=== PATIENT | female | born 1980 | race Hispanic/Latino ===

== ENCOUNTER 2017-08-27 14:30 | Inpatient (IN) | payer OTHER ==
[~2017-08-27 14:30] MED LIST: Oxytocin 10 UNITS/ML VIAL ONE; Propofol 200 MG/20 ML VIAL ONE; Succinylcholine Chloride 20 MG/ML 10 ml SYRINGE FS ONE
[2017-08-27] MEDS ORDERED: hydrALAZINE 20 MG/ML VIAL ONE ×2 (15:26→15:44)
[2017-08-27] MEDS: Lactated Ringer's 1,000 ML IV SCH (15:27)
[2017-08-27] MEDS ORDERED: Magnesium Sulfate 20 gm/500 ml 20 GM/500 ML BAG ONE (15:29)
[2017-08-27] MEDS ORDERED: Ondansetron HCl/PF 4 MG/2 ML Vial IVP PRN ×3 (15:33→21:35)
[2017-08-27] MEDS ORDERED: Calcium Gluc 4.6 MEQ/10 ML (100 MG/ML) SLOW IVP PRN (15:33)
[2017-08-27] MEDS ORDERED: Labetalol HCl 100 MG/20 ML VIAL ONE (15:44)
[2017-08-27] MEDS ORDERED: Magnesium Sulfate 20 gm/500 ml 20 GM/500 ML BAG IVPB SCH (15:45)
[2017-08-27] MEDS ORDERED: Lactated Ringer's 1,000 ML IV SCH (15:45)
[2017-08-27] MEDS ORDERED: Magnesium Sulfate 20 GM/WATER 500 ML BAG IVPB SCH (15:45)
[2017-08-27] MEDS: Labetalol HCl 100 MG/20 ML VIAL SLOW IVP SCH ×2 (15:49→16:10)
[2017-08-27 15:59] LABS: #Basophils 0.1 thou/uL (0.0-0.2); #Eosinphils 0.1 thou/uL (0.0-0.7); #Lymphocytes 1.7 thou/uL (1.20-3.40); #Monocytes 0.5 thou/uL (0.11-0.59); #Neutrophils 8.5 thou/uL (1.40-6.50); %Basophils 0.5 % (0.0-1.0); %Eosinophils 0.6 % (0.0-10.0); %Lymphocytes 15.9 % (21.0-51.0); %Monocytes 4.7 % (0.0-10.0); Hematocrit 38.4 % (36.0-47.0); Mean Platelet Volume 7.7 fL (7.4-10.4); Red Blood Cell (RBC) Count 4.46 mill/uL (4.20-5.40); White Blood Cell (WBC) Count 10.9 thou/uL (4.8-10.8)
[2017-08-27] MEDS ORDERED: Labetalol HCl 100 MG/20 ML VIAL SLOW IVP SCH ×3 (16:15→23:45)
[2017-08-27 16:16] LABS: ALT (SGPT) 12 U/L (8-55); AST (SGOT) 18 U/L (5-34); Alkaline Phosphatase 119 U/L (40-150); Anion Gap 10 mmol/L (10-20); BUN (Urea Nitrogen) 21 mg/dL (7.0-18.7); Bilirubin, Total 0.2 mg/dL (0.2-1.2); Calc. Creatinine Clearance 0 mL/min (70-130); Calcium 8.2 mg/dL (7.8-10.44); Carbon Dioxide 26 mmol/L (22-29); Chloride 105 mmol/L (98-107); Estimated GFR-MDRD Greater than 90; Globulin 3.3 g/dL (2.4-3.5); Protein, Total 5.7 g/dL (6.0-8.3)
[2017-08-27] MEDS ORDERED: hydrALAZINE 20 MG/ML VIAL SLOW IVP SCH ×2 (16:30→23:45)
[2017-08-27 16:37] LABS: Bilirubin Negative (Negative); Blood, Urine Small (Negative); Glucose, Urine (Dipstick) Negative (Negative); Ketone, Urine Negative (Negative); Nitrite Negative (Negative); Protein, Urine (Dipstick) > or equal to 300 mg/dL (Neg-Trace); Urobilinogen 0.2 mg/dL (0.2-1.0)
[2017-08-27 16:39] LABS: RBC/HPF 0-3 HPF (0-3)
[2017-08-27 16:46] LABS: Amphetamine Not Detected (NotDetected); Methadone Not Detected (NotDetected); Methamphetamine Detected (NotDetected)
[2017-08-27 16:47] VITALS: BMI 60.7
[2017-08-27] MEDS ORDERED: Labetalol 100 MG TAB PO SCH (17:00)
[2017-08-27 17:01] LABS: Bacteria/HPF 2+ HPF (None Seen); Hyaline Casts/LPF 7-10 HYALINE CAST LPF (0-3 Hyaline); Renal Epithelial None Seen HPF (0-3); Transitional Epithelial NONE SEEN HPF (0-3)
[2017-08-27] MEDS ORDERED: hydrOXYzine 25 MG/ML VIAL IM SCH ×2 (17:15)
[2017-08-27] MEDS ORDERED: FLU VACC QS2017-18 36 mo. & older 0.5 ML SYRINGE IM ONE (17:15)
[2017-08-27] MEDS ORDERED: HumaLOG 300 UNITS/3 ML VIAL SC PRN (17:24)
[2017-08-27] MEDS ORDERED: Dextrose 5% in Water 1,000 ML IV PRN (17:24)
[2017-08-27] MEDS ORDERED: Dextrose 50% Abboject 50 ML SYRINGE SLOW IVP PRN (17:24)
[2017-08-27] MEDS: Betamet Acet/Betamet Na Ph 30 MG/5 ML VIAL IM SCH (18:30)
[2017-08-27] MEDS ORDERED: CEFAZOLIN/Water 2 GM/20 ML SYRINGE ONE (19:06)
[2017-08-27] MEDS ORDERED: Bicitra 30 ML UDCUP ONE (19:06)
[2017-08-27] MEDS ORDERED: LR / Pitocin 40 units/1000 ml 1,000 ML ONE (19:07)
[2017-08-27] MEDS ORDERED: Midazolam HCl 2 mg/2 ml Vial ONE (19:37)
[2017-08-27] MEDS ORDERED: Fentanyl 250 MCG/5 ML VIAL ONE (19:37)
--- NOTE | 2017-08-27 19:52 | ULT ---
BIOPHYSICAL PROFILE AND OB ULTRASOUND: 08/27/17 Multiple longitudinal and transverse images of an intrauterine is obtained using a multihe rtz curvilinear transducer. Real time, color flow, and spectral waveform doppler analysis used to ev aluate the fetus. Images demonstrate a viable intrauterine with the fetus in a breech presentation. The plac enta is anterior. Anatomic evaluation is limited due to maternal body habitus. Amniotic fluid index measures 17.2 cm. Cardiac activity measures 143 beats per minute. Placenta is grade II. BIOMETRICS: Biparietal diameter 79 mm 31 weeks, 6 days Head circumference 292 mm 32 weeks, 1 day Abdominal circumference 270 mm 30 weeks, 6 days Femur length 62 mm 32 weeks, 1 day Composite age equals 31 weeks, 6 days with an estimated date of delivery of 10/23/17. Estimated weight is 1765 grams plus/minus 261 grams. BIOPHYSICAL PROFILE: tone = 2 breathing = 0 movement = 2 Amniotic fluid volume = 2 Composite = 6 out of 8. IMPRESSION: 1. Biophysical profile measures 6 out of 8. 2. Viable IUP with the fetus in breech presentation. Estimated gestational age of 31 weeks, 6 d ays with an estimated date of delivery of 10/23/17. POS: [facility]
[2017-08-27] MEDS ORDERED: HYDROmorphone 2 MG/ML VIAL SLOW IVP PRN ×2 (20:52→21:35)
[2017-08-27] MEDS ORDERED: Meperidine HCl/PF 25 MG/ML VIAL SLOW IVP PRN ×2 (20:52→21:35)
[2017-08-27] MEDS ORDERED: Ketorolac Tromethamine 30 MG/ML VIAL IVP SCH ×2 (21:00→21:45)
--- NOTE | 2017-08-27 21:11 | HP ---
DATE OF ADMISSION: 08/27/2017 ADMISSION DIAGNOSES: 1. A 31-week intrauterine with severe labile hypertension. 2. Possible induced hypertension. 3. Methamphetamine and cannabinoid use. HISTORY OF PRESENT ILLNESS: Josefina is a 37-year-old female, G7, P5-0-0-5, at 31 we eks gestation, who has been followed in my clinic for her care at 8 weeks gestation, who wa s evaluated in the office today for a routine appointment and noted to have markedly elevated blood pressure of 160/110 and the patient states she had just been feeling bad. The patient had been seen 4 weeks prior, noted to have a blood pressure of 140/90. She had no symptoms at that time, instruc jhonathan to check her blood pressure at home. Laboratory studies were obtained, which were normal and th e patient to have followup within the next 2 weeks. She subsequently had not presented until today. She was immediately referred to Labor and Delivery for evaluation. In Labor and Delivery, noted t hat her blood pressure was labile at 220/110. She was evaluated immediately by the laborist to star jhonathan IV magnesium, hydralazine and labetalol for nerve protection and blood pressure control. Labora tory studies were obtained. care has been complicated by positive cannabinoids screen was noted on 05/12/2017, 06/09/2017 and 07/23/2017, although patient denies any use since 01/2017. Also noted that she had an abnormal 1-hour GCT as well as an abnormal 3-hour GCT. We had been unable to reach her by telephone and she was performed of these results today. PAST MEDICAL HISTORY: Significant for previous normal spontaneous vaginal delivery x5 at 38-39 week s, each delivery noted that she had mild induced hypertension for which she states she was induced for delivery, but was never placed on any medications or observation for this. History als o significant for bipolar disorder without present medications and stable. She had been admitted in patient x2 secondary to bipolar disorder. MEDICATIONS: Include aspirin 81 mg, which patient had been prescribed as well as vitamins. ALLERGIES: She has no known drug allergies. SOCIAL HISTORY: Significant for positive tobacco use. The patient states she discontinued 2 weeks prior. She denies alcohol or drug use. She is not . Noted the father of this baby is not t he father of her previous children. History noted that she has been incarcerated for 2 years second callie to drug use, was released approximately 1 year prior. Noted the father of the baby is involved, but he is not the father of her previous children, all of her previous children had been removed fr om her home by CPS. PHYSICAL EXAMINATION: GENERAL: In Labor and Deliver on exam, she is alert and oriented, in no apparent distress. VITAL SIGNS: Blood pressure 190/110. She is afebrile, respiratory rate within normal limits. LUNGS: Clear to auscultation. CARDIOVASCULAR: Regular rate and rhythm without murmur. The patient is markedly obese with protube rant abdomen, which is nontender. EXTREMITIES: Without edema. DTRs 2+. SIGNIFICANT LABORATORY STUDIES: Include a CBC with a white count of 10.9, hemoglobin 12.8, hematocr it 38.4, platelet count normal at 189. Chemistry with electrolytes within normal limits. Creatinin e normal at 0.68, BUN 21, AST 18, ALT 12, alkaline phosphatase 119, total protein 5.7. Free T4 and TSH are normal, fibrinogen level is normal. Urinalysis specific gravity 1.040, positive protein, eq ual to or greater than 300, 7-10 wbc's, 11-20 squamous cells, 2+ bacteria. Urine creatinine elevate d at 186.68. Toxicology screen is positive for cannabinoids and methamphetamines. Biophysical prof ile was obtained and discussed with proof technician noted 6/8 with 2 points removed secondary to no breat jersey movements. The patient then placed on the monitor and noted the nonstress test was reactive wi th some mild variable decels. BULL had appeared normal on ultrasound as well as growth which reveale d gestational age at 31 weeks with good growth and breech presentation. ASSESSMENT AND PLAN: 1. A 31-week intrauterine with severe hypertension. 2. Possible induced hypertension. 3. Methamphetamine and cannabinoid use. 4. Breech presentation. The patient has been admitted, IM steroids have been given and will repeat in 24 hours. The patient will be continued on IV magnesium and antihypertensive medications to be managed through the laborist. A 24-hour urine studies have been started. We will sedate patient as needed. Consider for delivery if unable to control her blood pressure. All of this had been discussed with the patient and she is in agreement.
[2017-08-27] MEDS ORDERED: Meperidine HCl/PF 25 MG/ML VIAL ONE (21:50)
[2017-08-27] MEDS ORDERED: Ketorolac Tromethamine 30 MG/ML VIAL ONE (21:50)
[2017-08-27] MEDS ORDERED: Calcium Gluconate 4.6 MEQ in Sodium Chloride 0.9% 100 ML IVPB PRN (22:31)
[2017-08-27] MEDS ORDERED: Morphine 4 MG/ML Carpuject SLOW IVP PRN (22:34)
[2017-08-27] MEDS ORDERED: Ketorolac Tromethamine 30 MG/ML VIAL IVP PRN (22:34)
[2017-08-27] MEDS: Magnesium Sulfate 20 gm/500 ml 20 GM/500 ML BAG IVPB SCH (23:25)
[2017-08-28] MEDS ORDERED: Furosemide 20 MG/2 ML VIAL SLOW IVP SCH (00:15)
[2017-08-28] MEDS ORDERED: hydrALAZINE 20 MG/ML VIAL SLOW IVP SCH ×3 (00:15→21:15)
[2017-08-28] MEDS ORDERED: CEFAZOLIN/Water 2 GM/20 ML SYRINGE ONE (03:35)
[2017-08-28 05:39] LABS: Hematocrit 38.8 % (36.0-47.0); Mean Platelet Volume 7.9 fL (7.4-10.4); Red Blood Cell (RBC) Count 4.49 mill/uL (4.20-5.40); White Blood Cell (WBC) Count 12.3 thou/uL (4.8-10.8)
[2017-08-28] MEDS ORDERED: Adacel (T-DAP) 0.5 ML VIAL IM ONE (06:00)
--- NOTE | 2017-08-28 07:51 | PDOC.EVN ---
Event Note - Event Note Event Note: Pt seen at 0500 S: BELTRE improved, cough improved, adequate pain control, no RUQ pain. Hungry, no N /V, tolerating Ice chips O: Vital Signs (24 hours) Temp Pulse Resp BP BP Pulse Ox 08/28/17 04:00 97.7 F 72 20 08/27/17 23:59 72 172/88 H 08/27/17 23:30 72 172/88 H 08/27/17 22:37 72 172/88 H 08/27/17 19:00 98.4 F 72 20 08/27/17 17:48 77 221/141 H 08/27/17 17:47 77 221/141 H 08/27/17 17:25 77 221/141 H 08/27/17 16:45 77 192/115 H 08/27/17 16:30 98.5 F 74 22 H 97 08/27/17 16:27 98.5 F 85 22 H 215/140 H 96 08/27/17 16:10 79 225/120 H 08/27/17 15:49 94 209/113 H 08/27/17 15:29 80 227/144 H Laboratory Results - last 24 hr 08/27/17 08/27/17 08/27/17 15:36 15:36 15:40 WBC RBC Hgb Hct MCV MCH MCHC RDW Plt Count MPV Neutrophils % Neutrophils % (Manual) Lymphocytes % Monocytes % Eosinophils % Basophils % Neutrophils # Lymphocytes # Monocytes # Eosinophils # Basophils # Fibrinogen Sodium Potassium Chloride Carbon Dioxide Anion Gap BUN Creatinine Estimated GFR (MDRD) Glucose POC Glucose Calcium Magnesium Total Bilirubin AST ALT Alkaline Phosphatase Serum Total Protein Albumin Globulin Albumin/Globulin Ratio Free T4 TSH 3rd Generation Urine Color Urine Clarity Urine pH Ur Specific [place] Urine Protein Urine Glucose (UA) Urine Ketones Urine Blood Urine Nitrite Urine Bilirubin Urine Urobilinogen Ur Leukocyte Esterase Urine RBC Urine WBC Ur Squamous Epith Cells Ur Transition Epith Cell Ur Renal Epithelial Cell Urine Bacteria Hyaline Casts U Random Total Protein Greater than 2000 Urine Creatinine 186.68 H Urine Opiates Screen Ur Oxycodone Screen Urine Methadone Screen Ur Propoxyphene Screen Ur Barbiturates Screen Ur Tricyclics Screen Ur Phencyclidine Scrn Ur Amphetamines Screen U Methamphetamines Scrn U Benzodiazepines Scrn U Cocaine Metab Screen U Cannabinoids Screen Drug Screen Comment Syphilis IgG/IgM Ab Non-Reactive Hep Bs Antigen Blood Type O POSITIVE Antibody Screen NEGATIVE 08/27/17 08/27/17 08/27/17 15:40 15:40 15:44 WBC RBC Hgb Hct MCV MCH MCHC RDW Plt Count MPV Neutrophils % Neutrophils % (Manual) Lymphocytes % Monocytes % Eosinophils % Basophils % Neutrophils # Lymphocytes # Monocytes # Eosinophils # Basophils # Fibrinogen Sodium 137 Potassium 4.1 Chloride 105 Carbon Dioxide 26 Anion Gap 10 BUN 21 H Creatinine 0.68 Estimated GFR (MDRD) Greater than 90 Glucose 83 POC Glucose Calcium 8.2 Magnesium Total Bilirubin 0.2 AST 18 ALT 12 Alkaline Phosphatase 119 Serum Total Protein 5.7 L Albumin 2.4 L Globulin 3.3 Albumin/Globulin Ratio 0.7 L Free T4 TSH 3rd Generation Urine Color WILVER Urine Clarity CLEAR Urine pH 6.0 Ur Specific [place] 1.040 H Urine Protein > or equal to 300 H Urine Glucose (UA) Negative Urine Ketones Negative Urine Blood Small H Urine Nitrite Negative Urine Bilirubin Negative Urine Urobilinogen 0.2 Ur Leukocyte Esterase Negative Urine RBC 0-3 Urine WBC 7-10 H Ur Squamous Epith Cells 11-20 H Ur Transition Epith Cell NONE SEEN Ur Renal Epithelial Cell None Seen Urine Bacteria 2+ H Hyaline Casts 7-10 HYALINE CAST H U Random Total Protein Urine Creatinine Urine Opiates Screen Not Detected Ur Oxycodone Screen Not Detected Urine Methadone Screen Not Detected Ur Propoxyphene Screen Not Detected Ur Barbiturates Screen Not Detected Ur Tricyclics Screen Not Detected Ur Phencyclidine Scrn Not Detected Ur Amphetamines Screen Not Detected U Methamphetamines Scrn Detected H U Benzodiazepines Scrn Not Detected U Cocaine Metab Screen Not Detected U Cannabinoids Screen Detected H Drug Screen Comment Syphilis IgG/IgM Ab Hep Bs Antigen Blood Type Antibody Screen 08/27/17 08/27/17 08/27/17 15:44 15:44 15:44 WBC 10.9 H RBC 4.46 Hgb 12.8 Hct 38.4 MCV 86.1 MCH 28.7 MCHC 33.3 RDW 14.8 H Plt Count 189 MPV 7.7 Neutrophils % 78.3 H Neutrophils % (Manual) Not Reportable Lymphocytes % 15.9 L Monocytes % 4.7 Eosinophils % 0.6 Basophils % 0.5 Neutrophils # 8.5 H Lymphocytes # 1.7 Monocytes # 0.5 Eosinophils # 0.1 Basophils # 0.1 Fibrinogen 460 Sodium Potassium Chloride Carbon Dioxide Anion Gap BUN Creatinine Estimated GFR (MDRD) Glucose POC Glucose Calcium Magnesium Total Bilirubin AST ALT Alkaline Phosphatase Serum Total Protein Albumin Globulin Albumin/Globulin Ratio Free T4 0.85 TSH 3rd Generation 2.4804 Urine Color Urine Clarity Urine pH Ur Specific [place] Urine Protein Urine Glucose (UA) Urine Ketones Urine Blood Urine Nitrite Urine Bilirubin Urine Urobilinogen Ur Leukocyte Esterase Urine RBC Urine WBC Ur Squamous Epith Cells Ur Transition Epith Cell Ur Renal Epithelial Cell Urine Bacteria Hyaline Casts U Random Total Protein Urine Creatinine Urine Opiates Screen Ur Oxycodone Screen Urine Methadone Screen Ur Propoxyphene Screen Ur Barbiturates Screen Ur Tricyclics Screen Ur Phencyclidine Scrn Ur Amphetamines Screen U Methamphetamines Scrn U Benzodiazepines Scrn U Cocaine Metab Screen U Cannabinoids Screen Drug Screen Comment Syphilis IgG/IgM Ab Hep Bs Antigen Non-Reactive Blood Type Antibody Screen 08/27/17 08/27/17 08/27/17 17:56 23:13 23:13 WBC RBC Hgb Hct MCV MCH MCHC RDW Plt Count MPV Neutrophils % Neutrophils % (Manual) Lymphocytes % Monocytes % Eosinophils % Basophils % Neutrophils # Lymphocytes # Monocytes # Eosinophils # Basophils # Fibrinogen Sodium Potassium Chloride Carbon Dioxide Anion Gap BUN Creatinine Estimated GFR (MDRD) Glucose 120 H POC Glucose 84 Calcium Magnesium 4.7 H Total Bilirubin AST ALT Alkaline Phosphatase Serum Total Protein Albumin Globulin Albumin/Globulin Ratio Free T4 TSH 3rd Generation Urine Color Urine Clarity Urine pH Ur Specific [place] Urine Protein Urine Glucose (UA) Urine Ketones Urine Blood Urine Nitrite Urine Bilirubin Urine Urobilinogen Ur Leukocyte Esterase Urine RBC Urine WBC Ur Squamous Epith Cells Ur Transition Epith Cell Ur Renal Epithelial Cell Urine Bacteria Hyaline Casts U Random Total Protein Urine Creatinine Urine Opiates Screen Ur Oxycodone Screen Urine Methadone Screen Ur Propoxyphene Screen Ur Barbiturates Screen Ur Tricyclics Screen Ur Phencyclidine Scrn Ur Amphetamines Screen U Methamphetamines Scrn U Benzodiazepines Scrn U Cocaine Metab Screen U Cannabinoids Screen Drug Screen Comment Syphilis IgG/IgM Ab Hep Bs Antigen Blood Type Antibody Screen 08/28/17 05:14 WBC 12.3 H RBC 4.49 Hgb 13.0 Hct 38.8 MCV 86.4 MCH 28.8 MCHC 33.4 RDW 14.9 H Plt Count 188 MPV 7.9 Neutrophils % Neutrophils % (Manual) Lymphocytes % Monocytes % Eosinophils % Basophils % Neutrophils # Lymphocytes # Monocytes # Eosinophils # Basophils # Fibrinogen Sodium Potassium Chloride Carbon Dioxide Anion Gap BUN Creatinine Estimated GFR (MDRD) Glucose POC Glucose Calcium Magnesium Total Bilirubin AST ALT Alkaline Phosphatase Serum Total Protein Albumin Globulin Albumin/Globulin Ratio Free T4 TSH 3rd Generation Urine Color Urine Clarity Urine pH Ur Specific [place] Urine Protein Urine Glucose (UA) Urine Ketones Urine Blood Urine Nitrite Urine Bilirubin Urine Urobilinogen Ur Leukocyte Esterase Urine RBC Urine WBC Ur Squamous Epith Cells Ur Transition Epith Cell Ur Renal Epithelial Cell Urine Bacteria Hyaline Casts U Random Total Protein Urine Creatinine Urine Opiates Screen Ur Oxycodone Screen Urine Methadone Screen Ur Propoxyphene Screen Ur Barbiturates Screen Ur Tricyclics Screen Ur Phencyclidine Scrn Ur Amphetamines Screen U Methamphetamines Scrn U Benzodiazepines Scrn U Cocaine Metab Screen U Cannabinoids Screen Drug Screen Comment Syphilis IgG/IgM Ab Hep Bs Antigen Blood Type Antibody Screen Gen. Morbidly obese, NAD Resp. Unlabored Abd. obese, NT, Prevena wound vac in place A/P: 1. POD #1 s/p classical CD doing well 2. Severe pre-e. BPs mild range after multiple doses of hydralizine and labetalol and 1 dose lasix 10mg IV. UOP 400cc first hour after lasix, thereafter 60-170cc/hr. On magnesium recovery until 1999 3. Methamphetamine and THC on UDS. Notify SW 4. GDM with failed 3 hour but not checking BS at home. Check BS here given she received 1 dose of betamethasone
--- NOTE | 2017-08-28 08:20 | OP ---
DATE OF SERVICE: 08/27/2017 PREOPERATIVE DIAGNOSES: 1. A 31-week intrauterine . 2. Severe pre-eclampsia with blood pressures uncontrolled on labetalol and hydralazine. 3. Methamphetamine and marijuana use during . 4. Gestational diabetes. 5. Morbid obesity. 6. Breech presentation POSTOPERATIVE DIAGNOSES: 1. A 31-week intrauterine . 2. Severe preeclampsia with blood pressures uncontrolled on labetalol and hydralazine. 3. Methamphetamine and marijuana use during . 4. Gestational diabetes. 5. Morbid obesity. ANESTHESIA: General. ATTENDING: Dr. Kayleigh Roche COSURGEON: Dr. Pam Schuler PROCEDURE: Primary classical section through Pfannenstiel skin incision. DRAINS: Calle to gravity, Prevena wound VAC. COUNTS: Correct x2. COMPLICATIONS: None immediate. DISPOSITION: Stable to PACU and thereafter to Labor and Delivery for magnesium recovery. ESTIMATED BLOOD LOSS: 700 mL. IV FLUIDS: Replacement. URINE OUTPUT: Not measured. MEDICATIONS: 1. Ancef stone setter to the OR. 2. Pitocin at a cord clamp. 3. Toradol. DETAILED OPERATIVE NOTE: Risks, benefits, and alternatives of the procedure were reviewed with the patient and questions answered to her satisfaction. She was taken to the operating room where she was prepped and draped in the usual sterile fashion with the pannus retracted with tape. A Pfannenstiel skin incision was incised and carried down to the fascia using the scalpel. The fascia was nicked and the fascial incision was extended laterally using Bower scissors. Fascia was dissected off the rectus muscles in the midline. Rectus muscles were . Peritoneum was entered bluntly. Hany retractor was placed. Given the narrowness of the lower uterine segment and the expectation that baby was breech, decision was made to proceed with classical section. A vertical midline incision was incised until hysterotomy was achieved and extended digitally. Amniotomy was performed. Head was elevated into the incision and there was uncomplicated delivery of shoulders and torso. Cord was clamped x2 and cut and the baby was handed off the field to the waiting NICU team. Placenta was manually extracted after cord blood was obtained. Placenta sent to pathology. The uterus was exteriorized and the interior cleaned with moist laps to ensure that there were no remaining products of conception. The uterus was placed back into the abdominal cavity and the incision was closed with 3 layers of 0 PDS. Incision was noted to be hemostatic. The retractors were removed. Rectus muscle and peritoneum were reapproximated in the midline. Fascia was closed with 0 PDS in a running fashion with 2 separate stitches. Subcutaneous tissue was inspected and found to be hemostatic. Skin was closed with 4-0 Monocryl in subcuticular fashion. A Prevena Wound-VAC was applied. The patient tolerated the procedure well and was awakened and taken to PACU in stable condition. LAVELL
[2017-08-28] MEDS: Magnesium Sulfate 20 gm/500 ml 20 GM/500 ML BAG IVPB SCH ×2 (09:19→19:38)
[2017-08-28 10:01] LABS: ALT (SGPT) 12 U/L (8-55); AST (SGOT) 17 U/L (5-34); Alkaline Phosphatase 105 U/L (40-150); Anion Gap 13 mmol/L (10-20); BUN (Urea Nitrogen) 22 mg/dL (7.0-18.7); Bilirubin, Total 0.2 mg/dL (0.2-1.2); Calc. Creatinine Clearance 312 mL/min (70-130); Calcium 7.5 mg/dL (7.8-10.44); Carbon Dioxide 22 mmol/L (22-29); Chloride 103 mmol/L (98-107); Estimated GFR-MDRD Greater than 90; Globulin 3.3 g/dL (2.4-3.5); Magnesium 5.4 mg/dL (1.6-2.6); Protein, Total 5.6 g/dL (6.0-8.3)
[2017-08-28] MEDS: Lactated Ringer's 1,000 ML IV SCH (11:35)
[2017-08-28] MEDS: HYDROcodone/Acetaminophen 5/325 mg Tablet PO PRN ×2 (17:08→18:56)
[2017-08-28] MEDS ORDERED: Furosemide 40 MG/4 ML VIAL SLOW IVP SCH (20:00)
[2017-08-29] MEDS: HYDROcodone/Acetaminophen 5/325 mg Tablet PO PRN ×5 (01:08→19:43)
[2017-08-29] MEDS: hydrALAZINE 20 MG/ML VIAL SLOW IVP PRN ×6 (05:05→22:22)
[2017-08-29] MEDS ORDERED: hydrALAZINE 20 MG/ML VIAL ONE (05:57)
[2017-08-29] MEDS ORDERED: NIFEdipine 10 MG CAP PO SCH (06:15)
[2017-08-29] MEDS: Sodium Chloride 0.9% 20 ML ONE ×2 (08:20→08:40)
[2017-08-29] MEDS ORDERED: NIFEdipine XL 60 MG TAB PO SCH (09:00)
[2017-08-29] MEDS ORDERED: Sodium Chloride 0.9% 10 ML ONE ×4 (09:05→22:20)
[2017-08-29] MEDS ORDERED: Labetalol HCl 100 MG/20 ML VIAL SLOW IVP SCH ×3 (09:45→17:00)
[2017-08-29] MEDS: Docusate Calcium (SURFAK) 240 MG CAP PO SCH ×3 (10:15→21:17)
[2017-08-29 10:49] LABS: Acetaminophen Less than 6.0 mcg/mL (10.0-30.0); Salicylate Less than 8.0 mg/dL (15.0-30.0)
[2017-08-29] MEDS ORDERED: hydrALAZINE 20 MG/ML VIAL SLOW IVP SCH (11:15)
--- NOTE | 2017-08-29 11:56 | PRG ---
DATE OF SERVICE: 08/29/2017 TIME: 09:38 LAB In brief, as the patient is having recurrent spikes of her blood pressure, I have decided to order a recollection of a toxicology screen. As the metabolite of methamphetamine can be in the urine for maximum of 2-5 days per data researched, we will draw a blood sample. According to published data, methamphetamine metabolite will only be positive in the blood for about 12 hours. Therefore, rather than getting urine, we have deferred to a blood sample for methamphetamine. BIJAND
--- NOTE | 2017-08-29 12:04 | PRG ---
DATE OF SERVICE: 08/29/2017 TIME: 10:35 BP Check In brief, the patient received labetalol 20 mg earlier this morning for elevated blood pressure. I was just informed and have confirmed the patient's blood pressure, systolic, is over 170. Once again, we have also drawn a repeat serum test to make sure that there is no other illicit substances in her circulation that has not returned yet. I have also ordered additional labetalol dose at 40 mg slow IV x1 now. Once again, her current regimen includes Procardia 60 mg XL which was given earlier today. We will continue with her labetalol medication now and see if this gives a dose response. If this is still elevated, we may give 80 mg to follow. MTDD
--- NOTE | 2017-08-29 12:17 | PRG ---
DATE OF SERVICE: 08/29/2017 TIME OF EVALUATION: 09:15, it is now 09:30. LOCATION: Labor and Delivery, bed #7. POSTOPERATIVE DAY #2 In brief, this is a patient who underwent a primary section on 08/27/2017 with the preopera tive diagnoses bein. Methamphetamine and marijuana use in . 2. Gestational diabetes. 3. Morbid obesity. 4. Severe preeclampsia, unresponsive to medical management. She was at 31 weeks' gestation. During that surgery, a Prevena wound VAC was placed. For full deta ils, please turn to that operative dictation. In brief, I received the patient report from Dr. Shantell caba from this morning and I am aware of the patient's medical history. She has received Lasix with good diuresis prior to my assuming care. She was also placed on Procardia 60 mg 1 p.o. daily, this is the XL sustained-release pill, which was given earlier today. The patient also received rapid-re lease Procardia 10 mg earlier this morning at about 08:20 for blood pressure which was over 180 syst olic/over 100 diastolic. I evaluated the patient at bedside this morning and this is my progress no te for postoperative day #2. SUBJECTIVE: The patient was eating without new concerns or complaints. OBJECTIVE: I reviewed the patient's labs and confirm that methamphetamine and marijuana was detecte d on admission. This also helps explained to the patient's elevated blood pressure. (Note, the pat jeffrey denies history of chronic hypertension, but she does state that she has had high blood pressure with past pregnancies). On vital sign assessment, the patient's last blood pressure dated 08/29/2017 at 09:23 is 179/92, blo od pressure before that 20 minutes prior was 150/85, 20 minutes prior at 09:00 this morning was 197/ 86, at 08:55 on 08/29/2017 it was 200/87. Due to the persistent elevated blood pressures, I have candida maddox ordered labetalol IV 20 mg x1. As labetalol has not been given for over 48 hours, we will consid er starting labetalol scheduled for now, as we just began oral Procardia we will follow for now. The patient has a Prevena wound dressing in place. ASSESSMENT: This is a patient's postoperative day #2, status post emergent section for unresponsive preeclampsia, which is severe based on pressures. There is no evidence of HELLP b ased on laboratory criteria. She is also positive for amphetamines. PLAN: 1. Add labetalol IV as described today. 2. Procardia-XL 60 mg begun today. 3. Lasix has been given previously with good diuresis, therefore, we will hold off for now. 4. The patient's pulse pressure is greater than 55; therefore, labetalol and Procardia are consider ed first-line, in general. 5. We will consider repeating a urine toxicity to make sure that there has been no reintroduction o f amphetamines given sustained blood pressure elevation. Last urine toxicology assessment was on .
--- NOTE | 2017-08-29 12:23 | PRG ---
DATE OF SERVICE: 08/29/2017 TIME: 11:08. FOLLOWUP BLOOD PRESSURE NOTE In brief, the patient has received 40 mg of Apresoline yet 30 minutes later, blood pressures still w ith a systolic of 180. I have just ordered Apresoline 10 mg IV x1 to be given now for blood pressur e support. Continue to follow again.
--- NOTE | 2017-08-29 13:16 | PRG ---
DATE OF SERVICE: 08/29/2017 Followup at 11:17 In brief, the patient's serum toxicology returned. However, methamphetamines has not included on th at screen. We will continue to adjust blood prEessure medications for now.
[2017-08-29 13:36] LABS: #Eosinphils 0.1 thou/uL (0.0-0.7); #Lymphocytes 1.7 thou/uL (1.20-3.40); #Monocytes 0.5 thou/uL (0.11-0.59); %Eosinophils 0.4 % (0.0-10.0); %Lymphocytes 12.5 % (21.0-51.0); %Monocytes 4.1 % (0.0-10.0); Hematocrit 37.6 % (36.0-47.0); Mean Platelet Volume 7.5 fL (7.4-10.4); Red Blood Cell (RBC) Count 4.18 mill/uL (4.20-5.40); White Blood Cell (WBC) Count 13.2 thou/uL (4.8-10.8)
[2017-08-29] MEDS ORDERED: Furosemide 40 MG/4 ML VIAL SLOW IVP SCH (13:45)
[2017-08-29 13:59] LABS: ALT (SGPT) 12 U/L (8-55); AST (SGOT) 16 U/L (5-34); Alkaline Phosphatase 90 U/L (40-150); Anion Gap 11 mmol/L (10-20); BUN (Urea Nitrogen) 19 mg/dL (7.0-18.7); Bilirubin, Total 0.2 mg/dL (0.2-1.2); Calc. Creatinine Clearance 316 mL/min (70-130); Calcium 7.3 mg/dL (7.8-10.44); Carbon Dioxide 25 mmol/L (22-29); Chloride 103 mmol/L (98-107); Estimated GFR-MDRD Greater than 90; Globulin 3.3 g/dL (2.4-3.5); Protein, Total 5.6 g/dL (6.0-8.3)
--- NOTE | 2017-08-29 15:14 | PRG ---
DATE OF SERVICE: 08/29/2017 TIME: 1505. LABORATORY ASSESSMENT In brief, the patient's complete metabolic profile has returned. Complete metabolic profile shows normal AST and ALT. TSH is also normal. Creatinine is normal at 0.69. Continue to follow. MTDD
--- NOTE | 2017-08-29 17:12 | PRG ---
DATE OF SERVICE: 08/29/2017 BLOOD PRESSURE FOLLOW UP In brief, this patient's blood pressure still has systolics in the 170s. Her total dose of labetalol has been about 60 mg. The maximum allowable dose for hypertensive emergency IV is 300 mg. Therefore, I have ordered an additional 40 mg of labetalol which will take her total dose administered to about 100 mg. She continues on her Procardia-XL 60 mg, which was given this morning. Her labs have returned normal including a normal thyroid stimulating hormone. Urine output has been adequate with the dose of Lasix. MTDD
--- NOTE | 2017-08-29 17:20 | PRG ---
DATE OF SERVICE: 08/29/2017 TIME: 1315. In brief, I was just notified of the patient's blood pressure continues to be elevated. Our last do se of medication included Apresoline 10 mg IV x1 at 1115. Her last vital sign includes a blood pres sure up 216/95 at 1312. Prior to that, at 1307, it was 205/86. Pulse is in the 80s-90s. I just or dered Lasix 40 mg IV x1 to try to decrease her preload due to her wide pulse pressure. Additionally , we will give an additional dose of Apresoline 20 mg IV x1 now. We did ask for the blood to be a s end out lab to see if there is any other methamphetamines since admission that can account for this elevated severe blood pressure. I have also ordered a CBC and a complete metabolic profile and have also ordered a thyroid stimulating hormone test to make sure we were not missing any other etiologi es for this elevated blood pressure.
--- NOTE | 2017-08-29 20:21 | PRG ---
DATE OF SERVICE: 08/29/2017 BLOOD PRESSURE FOLLOWUP The patient still had systolic blood pressures of 160s with diastolics of 90s-100s. I have just sta rted Aldomet 500 mg 1 p.o. b.i.d. to add to her Procardia 60 mg XL. We are trying to transition ove r from IV medications to oral regimen. She is asymptomatic otherwise.
--- NOTE | 2017-08-29 20:52 | PRG ---
DATE OF SERVICE: 08/29/2017 TIME: 20:39. WOUND VAC FOLLOW UP In brief, I was just notified by Mishel, the patient's nurse, that the patient's Prevena wound VAC re servoir is full. We have contacted the OR to see if they can change out the reservoir, but they not ified us that it simply would have to be either removed, turned off, or replaced tomorrow. As she i s 48 hours from her surgery, we will remove the dressing now.
[2017-08-30] MEDS: HYDROcodone/Acetaminophen 5/325 mg Tablet PO PRN ×3 (01:21→20:46)
[2017-08-30] MEDS ORDERED: Triamterene/Hydrochlorothiazid 75 mg/50 mg Tablet PO SCH (09:00)
[2017-08-30] MEDS: NIFEdipine XL 90 MG TAB PO SCH (09:22)
--- NOTE | 2017-08-30 09:39 | PRG ---
DATE OF SERVICE: 08/30/2017 POSTOPERATIVE DAY #3 IN LABOR AND DELIVERY, CARE In brief, this is a patient who had a on 08/27/2017, who is still being monitored in Labor and Delivery due to severe blood pressure elevations. As a review, she had methamphetamines in her system noted initially. SUBJECTIVE: No new concerns identified by her. OBJECTIVE: The patient's blood pressure has still been elevated despite multiple attempts at adjust ments. Last blood pressure was 165/85 at 07:10, but it was 173/81 at 06:10, 1 hour previous. Blood pressures ranged anywhere from 136/73-173/91. In terms of her medication review, I have just adjusted her medications as follows, Aldomet is now a t 1000 mg oral dose in the morning (just received at around 07:00 a.m.) and this will continue with the Aldomet 500 b.i.d. (total of 2000 mg). Her Procardia was also scheduled at 9:00 a.m. at 60 mg X L. I have changed that to 90 mg XL. That is pending. Yesterday, the patient received a total of 1 00 mg of labetalol in various IV pushes. She has also required Apresoline throughout the day yester day. The patient had repeat laboratory assessment yesterday afternoon with no evidence of HELLP syndrome. On physical exam, incision is sutured and clean, dry, and intact. The wound VAC is now off. The wound is having some drainage, but it is intact and the drainage is clear. ASSESSMENT: This is a patient on postoperative day 3 with severe persistent labile blood pressures. Her medication doses as written. PLAN: 1. Continue to follow blood pressures. She is currently on dual agents of Aldomet and Procardia, b oth of which have been increased. 2. No evidence of thyroid abnormality on lab testing. 3. Continue blood pressure evaluations for now.
[2017-08-30 11:42] LABS: #Eosinphils 0.2 thou/uL (0.0-0.7); #Lymphocytes 1.8 thou/uL (1.20-3.40); #Monocytes 0.4 thou/uL (0.11-0.59); #Neutrophils 9.9 thou/uL (1.40-6.50); %Basophils 0.1 % (0.0-1.0); %Eosinophils 1.5 % (0.0-10.0); %Lymphocytes 14.7 % (21.0-51.0); Hematocrit 34.4 % (36.0-47.0); Red Blood Cell (RBC) Count 3.83 mill/uL (4.20-5.40); White Blood Cell (WBC) Count 12.3 thou/uL (4.8-10.8)
[2017-08-30] MEDS: Docusate Calcium (SURFAK) 240 MG CAP PO SCH ×3 (11:44→20:46)
[2017-08-30 12:11] LABS: ALT (SGPT) 11 U/L (8-55); AST (SGOT) 14 U/L (5-34); Alkaline Phosphatase 88 U/L (40-150); Anion Gap 9 mmol/L (10-20); BUN (Urea Nitrogen) 16 mg/dL (7.0-18.7); Bilirubin, Total 0.2 mg/dL (0.2-1.2); Calc. Creatinine Clearance 341 mL/min (70-130); Calcium 7.6 mg/dL (7.8-10.44); Carbon Dioxide 26 mmol/L (22-29); Chloride 103 mmol/L (98-107); Estimated GFR-MDRD Greater than 90; Globulin 3.2 g/dL (2.4-3.5); Protein, Total 5.4 g/dL (6.0-8.3)
[2017-08-31] MEDS: HYDROcodone/Acetaminophen 5/325 mg Tablet PO PRN ×3 (01:10→19:36)
[2017-08-31] MEDS: NIFEdipine XL 90 MG TAB PO SCH (08:08)
[2017-08-31] MEDS: Triamterene/Hydrochlorothiazide 37.5 mg/25 mg Tablet PO SCH ×2 (08:09→21:23)
[2017-08-31] MEDS: Docusate Calcium (SURFAK) 240 MG CAP PO SCH ×2 (10:05→21:55)
--- NOTE | 2017-08-31 20:36 | PDOC.PP ---
Post Progress Note PO intake tolerated: yes Flatus: yes Ambulation: yes Vital Signs (12 hours) Temp Pulse Resp 08/31/17 16:00 99.5 F 91 20 08/31/17 12:00 99.5 F 91 20 Weight Weight 388 lb - Physical Examination General: NAD Cardiovascular: no m/r/g, RRR Abdominal: + bowel sounds, lochia Extremities: negative homans (B) Skin: CS incision dry & intact, no rash Neurological: no gross focal deficits Psychiatric: A&Ox3, normal affect Result Diagrams: 08/30/17 11:34 08/30/17 11:34 Additional Labs: Post Labs Blood Type O POSITIVE 08/27/17 15:36 Hep Bs Antigen Non-Reactive S/CO (NonReactive) 08/27/17 15:44 - Assessment/Plan bps noted. volitle through day but improving - continue current course of meds - iv only for persistent sbp>180-190
[2017-09-01] MEDS: HYDROcodone/Acetaminophen 5/325 mg Tablet PO PRN ×4 (03:42→23:58)
[2017-09-01] MEDS: NIFEdipine 10 MG CAP PO PRN ×2 (05:49→06:29)
[2017-09-01] MEDS: cloNIDine 0.1 MG TAB PO PRN ×3 (07:33→10:46)
--- NOTE | 2017-09-01 08:40 | PRG ---
DATE OF SERVICE: 09/01/2017 TIME OF SERVICE: 06:55 SUBJECTIVE: Ms. Fraga has rested well throughout the night. Systolic blood pressures have range d as high as 190s. She denies headache. She continued to have good urine output. She is resting w ell. LABORATORY DATA: No new. OBJECTIVE: VITAL SIGNS: Afebrile, pulse 90s-100s, blood pressures as noted. Physical exam unchanged. IMPRESSION: Persistent elevated blood pressures post-. PLAN: We will continue Maxzide 25 as well as Procardia-XL. Had added immediate release nifedipine; we would discontinue this at this time. The patient is not , we will initiate clonidi ne 0.1 p.o. q.1 hour p.r.n. for MIG WELDER greater than or equal to 170 and continue to follow. We will or rony basic metabolic panel. We will have Dr. Del Castillo, who will be taking over at 0800 hour, continue to follow along with the patient.
[2017-09-01] MEDS: Triamterene/Hydrochlorothiazide 37.5 mg/25 mg Tablet PO SCH (08:48)
[2017-09-01] MEDS: NIFEdipine XL 90 MG TAB PO SCH (08:48)
[2017-09-01] MEDS: Docusate Calcium (SURFAK) 240 MG CAP PO SCH ×2 (08:48→21:04)
[2017-09-01 09:08] LABS: Anion Gap 12 mmol/L (10-20); BUN (Urea Nitrogen) 14 mg/dL (7.0-18.7); Calc. Creatinine Clearance 326 mL/min (70-130); Carbon Dioxide 26 mmol/L (22-29); Chloride 102 mmol/L (98-107); Estimated GFR-MDRD Greater than 90
[2017-09-01] MEDS ORDERED: Lisinopril 10 MG TAB PO SCH (09:45)
[2017-09-01] MEDS ORDERED: NIFEdipine XL 90 MG TAB PO SCH (14:00)
--- NOTE | 2017-09-01 14:00 | PDOC.PN ---
- Subjective Encounter Start Date: 09/01/17 Encounter Start Time: 13:59 Pt seen for management of hypertension. Sleepy but answering questions. Denies chest pain, shortness of breath, fevers or chills. - Objective MAR Reviewed: Yes Vital Signs & Weight: Vital Signs (12 hours) Temp Pulse Resp BP 09/01/17 11:37 173/93 H 09/01/17 10:46 173/93 H 09/01/17 08:48 90 191/98 H 09/01/17 07:45 98.9 F 90 20 09/01/17 07:33 182/88 H 09/01/17 04:10 98.9 F 95 20 Weight Weight 388 lb Result Diagrams: 08/30/17 11:34 09/01/17 08:23 Phys Exam - Physical Examination Morbid obesity HEENT: moist MMs, sclera anicteric Neck: supple, full ROM Respiratory: clear to auscultation bilateral Cardiovascular: RRR, no rub Gastrointestinal: soft, non-tender, positive bowel sounds Neurological: moves all 4 limbs Psychiatric: normal affect Dx/Plan (1) Hypertensive urgency Code(s): I16.0 - HYPERTENSIVE URGENCY Status: Acute (2) Bipolar disorder Code(s): F31.9 - BIPOLAR DISORDER, UNSPECIFIED Status: Chronic (3) Amphetamine abuse Code(s): F15.10 - OTHER STIMULANT ABUSE, UNCOMPLICATED Status: Chronic (4) Obesity Code(s): E66.9 - OBESITY, UNSPECIFIED Status: Chronic Qualifiers: Body mass index: BMI 60.0-69.9 - Plan * .Pt is not at this time, delivered last Thursday. * Increase cardizem to 180 mg PO daily starting tomorrow (give an additional dose of 90 mg now) * Start scheduled hydralazine 25 mg PO TID. * Discontinue triamterene/hydrochlorothiazide. * Continue to monitor vital signs. * * Pt will benefit from a sleep study (as outpatient) because she may be having resistant hypertension due to obstructive sleep apnea syndrome. Pt denies recreational drug use. Review of Systems - Review of Systems Respiratory: negative: Cough, Dry, Shortness of Breath, Hemoptysis, SOB with Excertion, Pleuritic Pain, Sputum, Wheezing Cardiovascular: negative: Chest Pain, Palpitations, Orthopnea, Paroxysmal Noc. Dyspnea, Edema, Light Headedness Neurological: negative: Weakness, Numbness, Incoordination, Change in Speech, Confusion, Seizures - Medications/Allergies Allergies/Adverse Reactions: Allergies Allergy/AdvReac Type Severity Reaction Status Date / Time No Known Drug Allergies Allergy Verified 08/27/17 16:31 Medications: Current Medications Hydrocodone Bitart/Acetaminophen ([place] 5/325) 1 tab PO Q4H PRN PRN Reason: Moderate Pain (4-6) Last Admin: 08/29/17 16:08 Dose: 1 tab Hydrocodone Bitart/Acetaminophen ([place] 5/325) 2 tab PO Q4H PRN PRN Reason: Severe Pain (7-10) Last Admin: 09/01/17 11:45 Dose: 2 tab Clonidine (Catapres) 0.1 mg PO Q1H PRN PRN Reason: SBP Greater Than 170 Last Admin: 09/01/17 10:46 Dose: 0.1 mg Docusate Calcium (Surfak) 240 mg PO BID [facility] Last Admin: 09/01/17 08:48 Dose: 240 mg Hydralazine HCl (Apresoline) 25 mg PO TID [facility] Nifedipine (Procardia Xl) 90 mg PO DAILY [facility] Last Admin: 09/01/17 08:48 Dose: 90 mg Nifedipine (Procardia Xl) 90 mg PO NOW [facility] Stop: 09/01/17 16:00 Nifedipine (Procardia Xl) 180 mg PO DAILY [facility] Sodium Chloride (Flush - Normal Saline) 10 ml IVF Q12HR PRN PRN Reason: Saline Flush Last Admin: 08/31/17 03:51 Dose: 10 ml Triamterene/HCTZ (Maxzide-25) 1 tab PO BID [facility] Last Admin: 09/01/17 08:48 Dose: 1 tab
[2017-09-01] MEDS: hydrALAZINE 25 MG TAB PO SCH ×2 (14:42→21:04)
--- NOTE | 2017-09-01 16:34 | PRG ---
DATE OF SERVICE: 09/01/2017 This is postoperative day 4 status post a for severe preeclampsia. She has been off mag a nd we have been having complications with persistent blood pressure issues in the severe range today . We had Internal Medicine consult and got their recommendations. They recommended doubling her Pr ocardia and adding Apresoline 25 mg 3 times a day. We have discharge lisinopril, discharge Maxzide, and then patient will continue to have clonidine p.r.n. as needed every hour. Blood pressures sinc e change have come down into the mild range with the last blood pressure 143/78. Her CMP was within normal limits yesterday and will not repeat that. We will be transferring the patient to the postp artum floor and evaluate there. If blood pressure remains stable over the next 18-24 hours, patient can likely discharge home.
[2017-09-01] MEDS: Lactated Ringer's 1,000 ML IV SCH (18:18)
[2017-09-01] MEDS: Betamet Acet/Betamet Na Ph 30 MG/5 ML VIAL IM SCH (18:19)
[2017-09-02] MEDS: HYDROcodone/Acetaminophen 5/325 mg Tablet PO PRN ×3 (04:23→19:52)
[2017-09-02] MEDS: NIFEdipine XL 90 MG TAB PO SCH (08:21)
[2017-09-02] MEDS: Docusate Calcium (SURFAK) 240 MG CAP PO SCH ×2 (08:23→19:52)
[2017-09-02] MEDS: hydrALAZINE 25 MG TAB PO SCH ×3 (08:23→19:52)
--- NOTE | 2017-09-02 09:16 | PDOC.PP ---
Post Progress Note Post Day #: 5 Subjective: Doing well. She is sore but ambulating and denies any issues otherwise. PO intake tolerated: yes Flatus: yes Ambulation: yes Vital Signs (12 hours) Temp Pulse Resp BP BP BP 09/02/17 08:23 83 158/91 H 09/02/17 08:21 83 158/91 H 09/02/17 08:05 98.0 F 83 18 158/91 H 09/02/17 04:00 98.5 F 99 18 143/81 H 09/02/17 00:00 98.1 F 101 H 18 137/100 H Weight Weight 348 lb - Physical Examination General: NAD Respiratory: non-labored breathing Abdominal: lochia (normal), no distention, appropriately TTP Skin: CS incision dry & intact, no rash Neurological: no gross focal deficits Psychiatric: A&Ox3, normal affect Result Diagrams: 08/30/17 11:34 09/01/17 08:23 Additional Labs: Post Labs Blood Type O POSITIVE 08/27/17 15:36 Hep Bs Antigen Non-Reactive S/CO (NonReactive) 08/27/17 15:44 (1) S/P primary low transverse Code(s): Z98.891 - HISTORY OF UTERINE SCAR FROM PREVIOUS SURGERY Status: Acute - Assessment/Plan Doing well. BPs improved but borderline. Will continue to monitor at least until tomorrow morning.
--- NOTE | 2017-09-02 12:33 | PDOC.PN ---
- Subjective Encounter Start Date: 09/02/17 Encounter Start Time: 10:20 Pt seen for followup re; hypertension. Denies chest pain, shortness of berath, fevers or chills. No headache. - Objective MAR Reviewed: Yes Vital Signs & Weight: Vital Signs (12 hours) Temp Pulse Resp BP BP 09/02/17 08:23 83 158/91 H 09/02/17 08:21 83 158/91 H 09/02/17 08:05 98.0 F 83 18 158/91 H 09/02/17 04:00 98.5 F 99 18 143/81 H Weight Weight 348 lb Result Diagrams: 08/30/17 11:34 09/01/17 08:23 Phys Exam - Physical Examination Morbid obesity HEENT: moist MMs, sclera anicteric Neck: supple Respiratory: clear to auscultation bilateral Cardiovascular: RRR, no rub Gastrointestinal: soft, positive bowel sounds Neurological: moves all 4 limbs Psychiatric: normal affect Skin: no rash Dx/Plan (1) HTN (hypertension) Code(s): I10 - ESSENTIAL (PRIMARY) HYPERTENSION Status: Chronic (2) Bipolar disorder Code(s): F31.9 - BIPOLAR DISORDER, UNSPECIFIED Status: Chronic (3) Amphetamine abuse Code(s): F15.10 - OTHER STIMULANT ABUSE, UNCOMPLICATED Status: Chronic (4) Obesity Code(s): E66.9 - OBESITY, UNSPECIFIED Status: Chronic Qualifiers: Body mass index: BMI 50.0-59.9 (5) Hypertensive urgency Code(s): I16.0 - HYPERTENSIVE URGENCY Status: Resolved - Plan * . BP improved today, still high. Will increase hydralazine dose. Pt asymptomatic. Monitor vital signs, titrate antihypertensives PRN. Review of Systems - Review of Systems Respiratory: negative: Cough, Dry, Shortness of Breath, Hemoptysis, SOB with Excertion, Pleuritic Pain, Sputum, Wheezing Cardiovascular: negative: Chest Pain, Palpitations, Orthopnea, Paroxysmal Noc. Dyspnea, Edema, Light Headedness Neurological: negative: Weakness, Numbness, Incoordination, Change in Speech, Confusion, Seizures - Medications/Allergies Allergies/Adverse Reactions: Allergies Allergy/AdvReac Type Severity Reaction Status Date / Time No Known Drug Allergies Allergy Verified 08/27/17 16:31 Medications: Current Medications Hydrocodone Bitart/Acetaminophen ([place] 5/325) 1 tab PO Q4H PRN PRN Reason: Moderate Pain (4-6) Last Admin: 08/29/17 16:08 Dose: 1 tab Hydrocodone Bitart/Acetaminophen ([place] 5/325) 2 tab PO Q4H PRN PRN Reason: Severe Pain (7-10) Last Admin: 09/02/17 04:23 Dose: 2 tab Clonidine (Catapres) 0.1 mg PO Q1H PRN PRN Reason: SBP Greater Than 170 Last Admin: 09/01/17 10:46 Dose: 0.1 mg Docusate Calcium (Surfak) 240 mg PO BID [facility] Last Admin: 09/02/17 08:23 Dose: 240 mg Hydralazine HCl (Apresoline) 25 mg PO TID [facility] Last Admin: 09/02/17 08:23 Dose: 25 mg Nifedipine (Procardia Xl) 180 mg PO DAILY [facility] Last Admin: 09/02/17 08:21 Dose: 180 mg Sodium Chloride (Flush - Normal Saline) 10 ml IVF Q12HR PRN PRN Reason: Saline Flush Last Admin: 08/31/17 03:51 Dose: 10 ml
--- NOTE | 2017-09-02 16:23 | PDOC.EVN ---
Subjective - Review of Systems Events since last encounter: void entry
[2017-09-03] MEDS: HYDROcodone/Acetaminophen 5/325 mg Tablet PO PRN ×2 (02:09→14:41)
[2017-09-03] MEDS: cloNIDine 0.1 MG TAB PO PRN (06:08)
[2017-09-03] MEDS: hydrALAZINE 25 MG TAB PO SCH ×2 (09:31→14:47)
[2017-09-03] MEDS: Docusate Calcium (SURFAK) 240 MG CAP PO SCH (09:31)
[2017-09-03] MEDS: NIFEdipine XL 90 MG TAB PO SCH (09:36)
--- NOTE | 2017-09-03 11:31 | PDOC.PN ---
- Subjective Encounter Start Date: 09/03/17 Encounter Start Time: 10:00 Pt seen for followup re: hypertension. Denies chest pain, shortness of breath, fevers or chills. - Objective MAR Reviewed: Yes Vital Signs & Weight: Vital Signs (12 hours) Temp Pulse Resp BP BP BP 09/03/17 09:36 100 136/86 09/03/17 09:31 100 136/86 09/03/17 08:00 98.4 F 100 18 136/86 09/03/17 06:08 171/94 H 09/03/17 06:00 98.7 F 98 24 H 171/94 H 09/03/17 02:00 98.1 F 103 H 24 H 139/98 H Weight Weight 348 lb Result Diagrams: 08/30/17 11:34 09/01/17 08:23 Phys Exam - Physical Examination Morbid obesity HEENT: moist MMs Neck: supple Respiratory: clear to auscultation bilateral Cardiovascular: RRR Neurological: moves all 4 limbs Psychiatric: normal affect Dx/Plan (1) HTN (hypertension) Code(s): I10 - ESSENTIAL (PRIMARY) HYPERTENSION Status: Chronic (2) Bipolar disorder Code(s): F31.9 - BIPOLAR DISORDER, UNSPECIFIED Status: Chronic (3) Amphetamine abuse Code(s): F15.10 - OTHER STIMULANT ABUSE, UNCOMPLICATED Status: Chronic (4) Obesity Code(s): E66.9 - OBESITY, UNSPECIFIED Status: Chronic Qualifiers: Body mass index: BMI 50.0-59.9 (5) Hypertensive urgency Code(s): I16.0 - HYPERTENSIVE URGENCY Status: Resolved - Plan * . BP better. Counseled pt re: checking BP and heart rate three times a day and showing the readings to her family physician. Advised stopping recreational drugs. Pt expressed understanding. Plan for discharge noted, will sign off. Review of Systems - Review of Systems Cardiovascular: negative: Chest Pain, Palpitations, Orthopnea, Paroxysmal Noc. Dyspnea, Edema, Light Headedness Gastrointestinal: negative: Nausea, Vomiting, Abdominal Pain, Diarrhea, Constipation, Melena, Hematochezia - Medications/Allergies Allergies/Adverse Reactions: Allergies Allergy/AdvReac Type Severity Reaction Status Date / Time No Known Drug Allergies Allergy Verified 08/27/17 16:31 Medications: Current Medications Hydrocodone Bitart/Acetaminophen ([place] 5/325) 1 tab PO Q4H PRN PRN Reason: Moderate Pain (4-6) Last Admin: 09/03/17 02:09 Dose: 1 tab Hydrocodone Bitart/Acetaminophen ([place] 5/325) 2 tab PO Q4H PRN PRN Reason: Severe Pain (7-10) Last Admin: 09/02/17 19:52 Dose: 2 tab Clonidine (Catapres) 0.1 mg PO Q1H PRN PRN Reason: SBP Greater Than 170 Last Admin: 09/03/17 06:08 Dose: 0.1 mg Docusate Calcium (Surfak) 240 mg PO BID [facility] Last Admin: 09/03/17 09:31 Dose: 240 mg Hydralazine HCl (Apresoline) 50 mg PO TID [facility] Last Admin: 09/03/17 09:31 Dose: 50 mg Nifedipine (Procardia Xl) 180 mg PO DAILY [facility] Last Admin: 09/03/17 09:36 Dose: 180 mg Sodium Chloride (Flush - Normal Saline) 10 ml IVF Q12HR PRN PRN Reason: Saline Flush Last Admin: 08/31/17 03:51 Dose: 10 ml
[2017-09-03 17:40] VITALS: BP 154/71; TEMP 97.9
--- NOTE | 2017-09-04 06:14 | DIS ---
DATE OF ADMISSION: 08/27/2017 DATE OF DISCHARGE: 09/03/2017 ADMITTING DIAGNOSES: 1. Intrauterine at 31 weeks. 2. -induced hypertension. 3. Methamphetamine abuse. DISCHARGE DIAGNOSES: 1. Intrauterine at 31 weeks. 2. -induced hypertension. 3. Methamphetamine abuse. PROCEDURE PERFORMED: Primary lower transverse section and preeclampsia management. CONSULTATIONS: Internal Medicine. HOSPITAL COURSE: Patient is a 37-year-old female who presented to the hospital from the clinic after noting elevated pressures in clinic of 160/110 and feeling bad. In labor and delivery blood, blood pressures became labile as high as 220/110. Attempts of blood pressure control with medication was ineffective and patient was taken to the OR for a . Please refer to the operative note for complete details. Her course has been complicated by persistent resistant hypertension. She was on magnesium for 24 hours. After about the evening of day #1, patient began having severe range of pressures that persistently became difficult to treat. Over the subsequent 4 to 5 days, patient remained on labor and delivery as blood pressure medications were routinely increased with IV breakthrough medications. On hospital day #5, Internal Medicine was consulted as patient's oral regimen was not sufficiently managing blood pressures. After consultation , medications were increased to 180 mg of Procardia daily and 25 mg of hydralazine three times a day. Pressures did improve, but had multiple spikes into the superior range and medications were adjusted again to 180 mg of Procardia daily and 50 mg of hydralazine t.i.d. This appears to be keeping blood pressures at this point mainly in the [id number] range. Patient is not having any adverse symptoms. Of note, the patient had a 40-pound weight loss since presentation and delivery of her baby. The patient is being discharged to home on hydralazine 50 mg to be taken 3 times a day with a month' s supply, Procardia-XL 180 mg to be taken once a day with a month's supply, and tramadol 50 mg tablets to be taken 1 to 2 tablets every 4 hours p.r.n. for pain , and then Tylenol [id number] as needed. The patient has been given instructions to check her blood pressure at home 3 times a day and to notify her physician if her pressures are measuring about 170 systolic and 105 diastolic. She is to follow up with her primary OB, Dr. Pam Schuler in 1 week for blood pressure check and an incision check. Patient has been given instructions to seek medical attention if she experiences fever, increasing pain or bleeding or discharge from her incision, or redness or firmness from her incision. She has also been given instructions to limit her lifting to 15 pounds for the next 4 to 6 weeks and will have a 2-week restriction from driving. On the date of discharge, patient's blood pressure is 141/62, respiratory rate of 20, pulse of 113, temperature 98.3. After discharge the pharmacy called and reported the medication needs prior authorization by her pcp before being filled as written. We were able to resolved the hydralizine Rx. How Procardia xl 180mg daily was not approved. We did manage to get 30 tablets of procardia 90mg and gave her instructions to take two daily. Please work with Medicaid to get authorization if she needs more than two weeks of medication. LAVELL
== END 2017-09-03 18:00 | disposition home or self-care (01) | DRG 765 ==
LOC: L&D/OP 14:30 → L&D 18:09 → 3SW 09-01 17:11
PROVIDERS: ADMIT Family Medicine; ATTEND Family Medicine
PROC: 10D00Z0 Extraction of Products of Conception, High, Open Approach (ICD-10-PCS; principal; 2017-08-27)
DX: O14.14 Severe pre-eclampsia complicating childbirth (principal); Z68.43 Body mass index [BMI] 50.0-59.9, adult; E66.01 Morbid (severe) obesity due to excess calories; O99.324 Drug use complicating childbirth; O24.429 Gestational diabetes mellitus in childbirth, unspecified control; O99.214 Obesity complicating childbirth; Z71.3 Dietary counseling and surveillance; F12.90 Cannabis use, unspecified, uncomplicated; Z3A.31 31 weeks gestation of pregnancy; Z37.0 Single live birth; F15.10 Other stimulant abuse, uncomplicated; F31.9 Bipolar disorder, unspecified; I16.0 Hypertensive urgency; O32.1XX0 Maternal care for breech presentation, not applicable or unspecified
CPT/HCPCS: 36415; 36416; 76805; 76819; 80048; 80053; 80306; 80307; 81001; 82570; 82947; 83735; 84156; 84439; 84443; 85025; 85027; 85384; 86780; 86803; 86850; 86900; 86901; 87340; 88307; A4216; J0360; J0702; J1885; J1940; J2175; J2250; J2270; J2590; J2704; J3010; J3410; J3475

== ENCOUNTER 2018-08-15 23:00 | Emergency (ER) | payer MEDICAID, OTHER | END 2018-08-15 23:52 | disposition home or self-care (01) | LOC: ERS 23:00 | DX: L08.9 Local infection of the skin and subcutaneous tissue, unspecified (principal); I10 Essential (primary) hypertension; F41.9 Anxiety disorder, unspecified; F32.9 Major depressive disorder, single episode, unspecified; F43.10 Post-traumatic stress disorder, unspecified; F17.210 Nicotine dependence, cigarettes, uncomplicated | CPT/HCPCS: 99283 ==

== ENCOUNTER 2018-08-22 09:53 | Emergency (ER) | payer MEDICAID, SELFPAY | END 2018-08-22 10:45 | disposition home or self-care (01) | LOC: ERS 09:53 | DX: I10 Essential (primary) hypertension (principal); L73.9 Follicular disorder, unspecified; F43.10 Post-traumatic stress disorder, unspecified; F41.9 Anxiety disorder, unspecified; F17.210 Nicotine dependence, cigarettes, uncomplicated | CPT/HCPCS: 99283 ==

== ENCOUNTER 2018-10-01 13:32 | Emergency (ER) | payer SELFPAY ==
[2018-10-01 14:10] LABS: BHCG - Serum POSITIVE (NEGATIVE)
[2018-10-01 14:11] LABS: Pregs Control Background? CLEAR/WHITE (CLR/WHITE); Pregs Control Bar Appear? YES (CONTROL BAR)
--- NOTE | 2018-10-01 17:24 | ULT ---
OB ULTRASOUND: 10/01/18 HISTORY: Abdominal cramping. FINDINGS: The uterus measures 12.5 x 6.6 x 6.9 cm. The right ovary measures 3.2 x 4.2 x 2.5 cm and the left ova ry measures 1.7 x 3 x 1.5 cm. Flow is demonstrated to both ovaries. There are two intrauterine gestational sacs present. One of these (baby A), has measurements correspo nding to an estimated gestational age of 6 weeks, 1 day and NYA at 05/26/19. The crown-rump length gideon sures 0.33 cm, gestational sac diameter 1.52 cm and yolk sac diameter 0.26 cm. heart rate measu res 123 beats per minute. The other gestational sac does not demonstrate a pole (gestational sac B). Hypoechoic area is s een to the left of these gestational sacs which may either represent a chorionic bleed or third gesta tional sac without pole. IMPRESSION: Findings suggestive of multiple intrauterine pregnancies with only one of them demonstrating a heart rate and has an estimated gestational age of 6 weeks, 1 day and NYA at 05/26/19. Findings were discussed over the telephone with Viola Longoria in the Emergency Room at 4:28 p.m. POS: EDDA
== END 2018-10-01 17:17 | disposition home or self-care (01) ==
LOC: ERS 13:32
DX: O09.521 Supervision of elderly multigravida, first trimester (principal); O99.89 Other specified diseases and conditions complicating pregnancy, childbirth and the puerperium; R10.30 Lower abdominal pain, unspecified; O99.341 Other mental disorders complicating pregnancy, first trimester; F41.9 Anxiety disorder, unspecified; F32.9 Major depressive disorder, single episode, unspecified; F43.10 Post-traumatic stress disorder, unspecified; O99.331 Smoking (tobacco) complicating pregnancy, first trimester; F17.210 Nicotine dependence, cigarettes, uncomplicated; I10 Essential (primary) hypertension; Z3A.01 Less than 8 weeks gestation of pregnancy
CPT/HCPCS: 36415; 76805; 84702; 84703

== ENCOUNTER 2019-02-24 21:41 | Day surgery (SDC) | payer OTHER ==
[2019-02-24 22:24] VITALS: BMI 57.9
[2019-02-24 23:17] LABS: FFN Internal QC Analyzer PASS (PASS); FFN Internal QC Cassette PASS (PASS); Fetal Fibronectin Negative (Negative)
--- NOTE | 2019-02-25 07:36 | ULT ---
BIOPHYSICAL PROFILE: biophysical profile on Twin B will be reported on the examination for the Twin A gestation. Pl ease see the additional biophysical profile on the separately dictated, concurrently performed obstet rical ultrasound exam. POS: BH
--- NOTE | 2019-02-25 07:42 | ULT ---
THIRTY MINUTE BIOPHYSICAL SCORE ULTRASOUND OF TWIN : INDICATION: Twin with history of maternal morbid obesity. FINDINGS: There is a dichorionic diamniotic twin-twin with Twin A located to the maternal right with the fetus's head to the maternal right in a transverse lie. Twin B is on the maternal left but also in a transverse lie with its head to the maternal right. TWIN A: The Twin A documents cardiac activity at 144 b.p.m. Again, the head is to the maternal right. The p lacenta is anterior in location without evidence of previa. BULL is noted at 18.3 cm. The biophysical profile is 8 out of 8. movement: 2 out of 2. tone: 2 out of 2. breathin out of 2. Amniotic fluid volume: 2 out of 2. Twin B: The placenta is posterior in location without evidence of previa. The head reported on the imaging a s being to the maternal right. BULL is noted at 10.6 cm. heart tones are noted at 149 b.p.m. Biophysical score of 8 out of 8. movement: 2 out of 2. tone: 2 out of 2. breathing movements: 2 out of 2. Amniotic fluid volume: 2 out of 2. IMPRESSION: 1. Biophysical profile of 8 out of 8 for Twin and a biophysical profile of 8 out of 8 for Twin B. 2. Dichorionic, diamniotic twin-twin . POS: BH
--- NOTE | 2019-02-25 08:07 | ER ---
DATE OF SERVICE: 02/24/2019 PRIMARY OB: Walt Xavier MD CHIEF COMPLAINT: Abdominal pains, spots, vision change, chronic headache. HISTORY OF PRESENT ILLNESS: The patient is a 38-year-old morbidly obese female with chronic hypertension and gestational diabetes, on glyburide and Procardia, who is presenting today with chronic headache, visual spots, abdominal pain, and mucousy discharge. The patient has a history of preeclampsia with severe features and delivery at 27 weeks as a result and was worried that she may be experiencing something similar. The patient reports that her headache has been on and off for several months that she has had some vision changes and blurriness also for much of the , but has had spots in her vision that is new. She has also been experiencing some pelvic pains. The patient denies fever, cough, fall, chest pain, shortness of breath, nausea, vomiting, diarrhea, or constipation. She has had hip problems from the . No muscle weakness. No new rashes. No vaginal bleeding. She has had this watery mucousy discharge and no urinary urgency. The patient reports her blood sugars have been primarily in the 90s fasting and in the 130s up to 170s postprandial. PAST MEDICAL HISTORY: Chronic hypertension, gestational diabetes. PAST SURGICAL HISTORY: She has had 2 prior sections. PSYCHIATRIC HISTORY: Includes anxiety, depression, PTSD with a history of emergency department psychiatric evaluation in 2012. SOCIAL HISTORY: The patient reports tobacco use. Denies drug abuse or alcohol, though previous visits do document a history of methamphetamines, last use being reported in August 2018. OB LABS: Unavailable at the time of dictation. ALLERGIES: NO KNOWN DRUG ALLERGIES. MEDICATIONS: 1. vitamins. 2. Procardia. 3. Glyburide. PHYSICAL EXAMINATION: VITAL SIGNS: Blood pressure 134/73, heart rate of 99, respiratory rate 18, saturating 98% on room air, and temperature 98.1. Repeat blood pressure 134/76. GENERAL: She appears to be in no acute distress. She is alert, oriented, cooperative, and pleasant to interact with. HEENT: Head is normocephalic and atraumatic. LUNGS: Clear to auscultation bilaterally. HEART: Has regular rate and rhythm. ABDOMEN: Soft and morbidly obese, nontender. EXTREMITIES: Nontender. GENITOURINARY: Vulva is without masses, lesions, or erythema. There is a strong odor. On speculum exam, the patient has significant amount of discharge. Cervix with some difficulties visualized and appears closed. VPIII and fibronectin were collected. Cervix on digital exam is closed, unable to grain picker baby's on with heart tracing due to habitus and BPPs were ordered for both fetuses, which both came back as 8. LABORATORY DATA: fibronectin came back negative. VPIII, which came back this morning has reported positive for bacterial vaginosis, negative for Trichomonas or Olivia. ASSESSMENT AND PLAN: The patient is a 38-year-old female with an intrauterine of di-di twins at 28 weeks' gestation, presenting with constellation of symptoms and concerns that she is developing preeclampsia again. Her blood pressures have been normal and stable on her Procardia. Lab work, fibronectin was negative. The patient did not show any evidence of labor or rupture of membranes and her VPIII demonstrated bacterial vaginosis. She will be prescribed metronidazole 500 mg to be taken twice a day for 7 days. The patient has 2 fetuses that are reassuring by a BPPs of 06/09. The patient was discharged home with instructions to follow up with her primary OB. Job ID: [id number]
== END 2019-02-25 01:41 | disposition home or self-care (01) ==
LOC: L&D/OP 21:41
PROVIDERS: ATTEND Obstetrics & Gynecology
DX: O99.89 Other specified diseases and conditions complicating pregnancy, childbirth and the puerperium (principal); R51 Headache; R10.9 Unspecified abdominal pain; H53.8 Other visual disturbances; O99.213 Obesity complicating pregnancy, third trimester; E66.01 Morbid (severe) obesity due to excess calories; O24.415 Gestational diabetes mellitus in pregnancy, controlled by oral hypoglycemic drugs; N89.8 Other specified noninflammatory disorders of vagina; O10.913 Unspecified pre-existing hypertension complicating pregnancy, third trimester; O99.343 Other mental disorders complicating pregnancy, third trimester; F32.9 Major depressive disorder, single episode, unspecified; F43.10 Post-traumatic stress disorder, unspecified; F41.9 Anxiety disorder, unspecified; O99.333 Smoking (tobacco) complicating pregnancy, third trimester; F17.200 Nicotine dependence, unspecified, uncomplicated; O23.593 Infection of other part of genital tract in pregnancy, third trimester; B96.89 Other specified bacterial agents as the cause of diseases classified elsewhere; O30.043 Twin pregnancy, dichorionic/diamniotic, third trimester; Z3A.28 28 weeks gestation of pregnancy; Z79.899 Other long term (current) drug therapy; Z79.84 Long term (current) use of oral hypoglycemic drugs; Z88.8 Allergy status to other drugs, medicaments and biological substances
CPT/HCPCS: 36415; 76819; 82731; 87480; 87510; 87660; 99283

== ENCOUNTER 2019-03-04 11:45 | Day surgery (SDC) | payer OTHER ==
[2019-03-04 12:23] VITALS: BMI 57.8
[2019-03-04] MEDS ORDERED: hydrALAZINE 20 MG/ML VIAL ONE (12:43)
[2019-03-04] MEDS ORDERED: hydrALAZINE 10 MG TAB PO SCH (12:45)
--- NOTE | 2019-03-04 12:48 | PDOC.LDHP ---
Labor and Delivery H&P Chief complaint: other (Twins. Morbid Obesity with BMI 57. GDM, CHTN...here for BP exacerbation vs Superimposd PIH) HPI: Patient of Dr freddie Frazier called me kai;ier this AM (around 1100) that this patient was being sent from [facility] (seen this AM) for BPs there of 200/100 and 165/90 (approx) Here for: BP obs, twins, classical CS HX, GDM HX....29 weeks 3 days HPI: 38 yo SAB1 with classical CS x1 [place] [address] [place], now at 29 weeks 3 days, known twins with good interval growth...here for BP obervation. HX CHTN and drug use, GDM on glyburide, HX clasical CS. No PIH sxs, good FM, no VB, no LOF, no HAs Review of Systems: complete ROS completed and as per HPI Current gestational age (weeks): 29 (3 days) Dating criteria: last menstrual period Grav: 8 Para: 6 OB History Details: SAB 1; Classical CS X1 Current complications: gestational diabetes (on glyburide 2.5 BID), hypertension (Procardia 30mg XL) Abnormal US findings: No Current medications: other (as above) Previous surgical history: classical CS Allergies/Adverse Reactions: Allergies Allergy/AdvReac Type Severity Reaction Status Date / Time labetalol Allergy Severe Verified 03/04/19 12:15 Hives Social history: drug use (Marijuana in past; Freddie suspected possible drug use by verbal communication) - Physical Exam Abnormal vital signs: BP here 140/87; 164/87...179/87 15 minutes later General: NAD Heart: RRR Lungs: CTAB Abdomen: other (OBESE) [place] contractions every: Spot FHTs 140s x 2; no CTX (limited by BMI) - Assessment 29 weeks 3 days with twins and: CHTN possible superimposed PIH, GDM, obesity, Classical CS in past - Plan Plan: observation in L&D (BPs confirmed to be above 160 x 2, 15 minutes apart. I have ordered hydralazine 10mg x 1 (20 minutes ago), and last repeat was still 168/97...I ordered another 10mg hydralazine. Cannot take labetolol. I have ordered: CBC, CMP, TSH, Urine protein/CR, TSH, Aic, UDS If BPs remain severe and delivery is a consideration...we will need to transfer to [facility] in [place] for possible delivery due to NICU bed status. Verbally reviewed with Dr frazier pre-admit)
[2019-03-04 13:26] LABS: Hemoglobin 10.8 g/dL (12.0-16.0); Mean Corpuscular HGB CONC 32.9 g/dL (32.0-36.0); Mean Corpuscular Hemoglobin 27.2 pg (27.0-31.0); Mean Corpuscular Volume 82.5 fL (78.0-98.0); Mean Platelet Volume 7.5 fL (7.4-10.4); Platelet Count 230 thou/uL (130-400); RBC Distribution Width 14.8 % (11.5-14.5); Red Blood Cell (RBC) Count 3.99 mill/uL (4.20-5.40); White Blood Cell (WBC) Count 8.6 thou/uL (4.8-10.8)
[2019-03-04 13:34] LABS: Hemoglobin A1c 5.8 % (4.0-6.0)
[2019-03-04 13:48] LABS: ALT (SGPT) 8 U/L (8-55); AST (SGOT) 9 U/L (5-34); Albumin 2.7 g/dL (3.5-5.0); Alkaline Phosphatase 142 U/L (40-150); Anion Gap 10 mmol/L (10-20); BUN (Urea Nitrogen) 9 mg/dL (7.0-18.7); Bilirubin, Total 0.2 mg/dL (0.2-1.2); Calc. Creatinine Clearance 321 mL/min (70-130); Calcium 8.9 mg/dL (7.8-10.44); Carbon Dioxide 24 mmol/L (22-29); Chloride 105 mmol/L (98-107); Estimated GFR-MDRD Greater than 90; Globulin 3.3 g/dL (2.4-3.5); Glucose 161 mg/dL (70-105); Potassium 3.7 mmol/L (3.5-5.1); Sodium 135 mmol/L (136-145)
[2019-03-04] MEDS ORDERED: NIFEdipine 10 MG CAP ONE (14:11)
--- NOTE | 2019-03-04 14:17 | PDOC.EVN ---
Event Note - Event Note Event Note: BP after 20mg Hydralazine still 169/90s. Case reviewed with Dr Xavier...as patient may require delivery at 29-30 weeks, due to multiple medical issues...we will recommened transport for higher level of care to [facility] in [place], [place] ([facility]) since she has been sen by that group previously
[2019-03-04] MEDS ORDERED: Magnesium Sulfate 20 gm/500 ml 20 GM/500 ML BAG ONE (14:32)
[2019-03-04] MEDS ORDERED: Calcium Gluc 4.6 MEQ/10 ML (100 MG/ML) SLOW IVP PRN (14:33)
[2019-03-04] MEDS ORDERED: Betamet Acet/Betamet Na Ph 30 MG/5 ML VIAL ONE (14:36)
--- NOTE | 2019-03-04 14:39 | PDOC.EVN ---
Event Note - Event Note Event Note: TRANSFER NOTE/DISCHARGE NOTE D/W MFM at [facility] in [place]... As needs higher level of care, we will transfer to That Location as she may need delivery at 29-30 weeks Glucose is 127 We will start magnesium as BPs still 160s/90s, and give celestone. MFM aware. Dr Vanda forbes is MFM commercial collections driver today. Awaiting transfer center contact. I have discussed this with the patient at bedside. DX: 1. 29-30 weeks 2. prior clasical CS 3. GDM 4. CHTN 5. superimposed Preeclampsia 6. Mornid obesity
[2019-03-04] MEDS ORDERED: Magnesium Sulfate 20 gm/500 ml 20 GM/500 ML BAG IVPB SCH (14:45)
[2019-03-04 15:09] LABS: Amphetamine Not Detected (NotDetected); Barbiturates Screen Not Detected (NotDetected); Benzodiazepine Screen Not Detected (NotDetected); Cocaine Metabolite Screen Not Detected (NotDetected); Medtox Control Line Valid? VALID (VALID); Medtox Reader # READER 4; Methadone Not Detected (NotDetected); Methamphetamine Not Detected (NotDetected); Opiate Screen Not Detected (NotDetected); Oxycodone Screen Not Detected (NotDetected); Phencyclidine (PCP) Not Detected (NotDetected); THC/Cannabinoid Screen Not Detected (NotDetected); Tricyclic Screen Not Detected (NotDetected)
[2019-03-04 15:21] LABS: Creatinine, Urine 121.02 mg/dL (47-110)
--- NOTE | 2019-03-04 15:21 | PDOC.EVN ---
Event Note - Event Note Event Note: See PRIOR DISCHARGE NOTE Case discussed with CARLTON, the MFM accepting nurse at [facility]. Reason for maternal transport: requires MFM due to multiple medical conditions at 29 weeks, prior classical CS...requires MFM care due to worsening HTN. Labs reviewed prior to transport: UDS negative
[2019-03-04] MEDS ORDERED: Betamet Acet/Betamet Na Ph 30 MG/5 ML VIAL IM SCH (16:00)
[2019-03-04] MEDS ORDERED: glyBURIDE 2.5 MG TAB PO SCH (16:00)
[2019-03-04] MEDS ORDERED: Magnesium Sulfate 20 GM/WATER 500 ML BAG IVPB SCH (16:00)
[2019-03-04] MEDS ORDERED: NIFEdipine 10 MG CAP PO SCH (16:00)
[2019-03-05] MEDS ORDERED: NIFEdipine XL 30 MG TAB PO SCH (09:00)
== END 2019-03-04 16:34 | disposition short-term general hospital (02) ==
LOC: L&D/OP 11:45
PROVIDERS: ATTEND Obstetrics & Gynecology
DX: O10.913 Unspecified pre-existing hypertension complicating pregnancy, third trimester (principal); O24.419 Gestational diabetes mellitus in pregnancy, unspecified control; O30.003 Twin pregnancy, unspecified number of placenta and unspecified number of amniotic sacs, third trimester; E66.01 Morbid (severe) obesity due to excess calories; Z3A.29 29 weeks gestation of pregnancy; Z88.8 Allergy status to other drugs, medicaments and biological substances
CPT/HCPCS: 36415; 36416; 80053; 80306; 82570; 83036; 84156; 84443; 85027; J0360; J0702; J3475

== ENCOUNTER 2019-03-23 19:20 | Inpatient (IN) | payer OTHER ==
[2019-03-23 20:04] LABS: #Eosinphils 0.1 thou/uL (0.0-0.7); #Lymphocytes 1.6 thou/uL (1.20-3.40); #Monocytes 0.4 thou/uL (0.11-0.59); #Neutrophils 6.2 thou/uL (1.40-6.50); %Basophils 0.1 % (0.0-1.0); %Eosinophils 1.5 % (0.0-10.0); %Lymphocytes 18.8 % (21.0-51.0); %Monocytes 4.6 % (0.0-10.0); Hemoglobin 10.5 g/dL (12.0-16.0); Mean Corpuscular HGB CONC 33.2 g/dL (32.0-36.0); Mean Corpuscular Hemoglobin 27.1 pg (27.0-31.0); Mean Corpuscular Volume 81.5 fL (78.0-98.0); Mean Platelet Volume 7.5 fL (7.4-10.4); Platelet Count 206 thou/uL (130-400); Red Blood Cell (RBC) Count 3.88 mill/uL (4.20-5.40); White Blood Cell (WBC) Count 8.3 thou/uL (4.8-10.8)
[2019-03-23 20:22] VITALS: BMI 60.1
[2019-03-23] MEDS ORDERED: hydrALAZINE 20 MG/ML VIAL ONE (20:23)
[2019-03-23 20:24] LABS: ALT (SGPT) 8 U/L (8-55); AST (SGOT) 10 U/L (5-34); Albumin 2.5 g/dL (3.5-5.0); Alkaline Phosphatase 164 U/L (40-150); Anion Gap 12 mmol/L (10-20); BUN (Urea Nitrogen) 14 mg/dL (7.0-18.7); Bilirubin, Total 0.2 mg/dL (0.2-1.2); Calc. Creatinine Clearance 272 mL/min (70-130); Calcium 8.8 mg/dL (7.8-10.44); Carbon Dioxide 23 mmol/L (22-29); Chloride 105 mmol/L (98-107); Estimated GFR-MDRD 83; Globulin 3.3 g/dL (2.4-3.5); Glucose 144 mg/dL (70-105); Potassium 4.3 mmol/L (3.5-5.1); Protein, Total 5.8 g/dL (6.0-8.3); Sodium 136 mmol/L (136-145)
[2019-03-23] MEDS: hydrALAZINE 20 MG/ML VIAL SLOW IVP PRN ×2 (20:27→21:51)
[2019-03-23] MEDS ORDERED: Magnesium Sulfate 20 gm/500 ml 20 GM/500 ML BAG ONE (20:32)
[2019-03-23] MEDS: Lactated Ringer's 1,000 ML IV SCH (20:35)
[2019-03-23] MEDS: Magnesium Sulfate 20 gm/500 ml 20 GM/500 ML BAG IVPB SCH (20:43)
[2019-03-23] MEDS ORDERED: Butorphanol Tartrate 1 MG/ML VIAL SLOW IVP PRN (20:45)
[2019-03-23] MEDS ORDERED: Zolpidem Tartrate 5 MG TAB PO PRN (20:45)
[2019-03-23] MEDS ORDERED: Promethazine HCl 25 MG/ML VIAL IM PRN (20:45)
[2019-03-23] MEDS ORDERED: Ondansetron PF 4 MG/2 ML Vial IVP PRN (20:45)
[2019-03-23] MEDS ORDERED: Calcium Gluc 4.6 MEQ/10 ML (100 MG/ML) SLOW IVP PRN (20:45)
[2019-03-23] MEDS ORDERED: Meperidine HCl/PF 25 MG/ML VIAL IM/IV PRN (20:45)
--- NOTE | 2019-03-23 21:05 | ULT ---
Biophysical profile twin . Multiple longitudinal and transverse images of twin is obtained using multihertz curviline ar . Real-time, flow and spectral waveform Doppler analysis used to evaluate the twin pregnancies. Twin A: The fetus is in a cephalic presentation. The placenta is anterior. Amniotic fluid index measu res 18.4 cm. Cardiac activity measures 168 bpm. Biometrics: movement equals 2 tone equals 2 breathing equals 2 Amniotic fluid volume equals 2 Composite Equals 8 out of 8. Twin B: Twin B is in a breech presentation. Placenta is not seen however on a previous ultrasound shawna ear to be posterior. Cardiac activity measures 155 beats a minute. Amniotic fluid index measures 10.9 cm. Twin B biophysical profile: movement equals 2 tone equals 2 breathing equals 2 Amniotic fluid volume equals 2 Composite equals 8 out of 8. IMPRESSION: Biophysical profile of twin A and twin B measures 8 out of 8. Transcribed Date/Time: 03/23/2019 9:15 PM
[2019-03-23 21:14] LABS: Bacteria/HPF None Seen HPF (None Seen); Hyaline Casts/LPF 7-10 HYALINE CAST LPF (0-3 Hyaline); Pathc Cast-AUWi Flag 1.22 (0-2.49); Squamous Epithelial 0-3 HPF (0-3); WBC/HPF 0-3 HPF (0-3)
[2019-03-23 21:15] LABS: Clarity Clear (Clear)
[2019-03-23 21:16] LABS: Bilirubin Negative (Negative); Blood, Urine Negative (Negative); Glucose, Urine (Dipstick) Negative (Negative); Leukocyte Negative (Negative); Nitrite Negative (Negative); Protein, Urine (Dipstick) 100 mg/dL (Neg-Trace); Specific Gravity, Urine 1.028 (1.002-1.036); Urobilinogen 0.2 mg/dL (0.2-1.0)
[2019-03-23 21:40] LABS: RBC/HPF 0-3 HPF (0-3)
[2019-03-23 21:43] LABS: Creatinine, Urine 173.65 mg/dL (47-110)
[2019-03-23] MEDS ORDERED: Magnesium Sulfate 20 GM/WATER 500 ML BAG IVPB SCH (21:45)
[2019-03-23] MEDS ORDERED: NIFEdipine 10 MG CAP PO SCH (21:45)
[2019-03-23 22:11] LABS: Amphetamine Not Detected (NotDetected); Barbiturates Screen Not Detected (NotDetected); Benzodiazepine Screen Not Detected (NotDetected); Cocaine Metabolite Screen Not Detected (NotDetected); Medtox Control Line Valid? VALID (VALID); Medtox Reader # READER 4; Methadone Not Detected (NotDetected); Methamphetamine Not Detected (NotDetected); Opiate Screen Not Detected (NotDetected); Oxycodone Screen Not Detected (NotDetected); Phencyclidine (PCP) Not Detected (NotDetected); THC/Cannabinoid Screen Not Detected (NotDetected); Tricyclic Screen Not Detected (NotDetected)
[2019-03-23 22:12] LABS: Syphilis Antibody Nonreactive (Nonreactive); Syphilis Antibody Index 0.03 S/CO (<1.00 Non-Reactive)
--- NOTE | 2019-03-23 22:23 | PDOC.LDHP ---
Labor and Delivery H&P Chief complaint: other (c/o BELTRE, 'spots and dots") HPI: 39 yo LAF presents c/o beltre over last 24 hrs and visual changes. Denies LOF, vaginal bleeding or UCs. Current gestational age (weeks): 31 Due date: 05/20/19 Dating criteria: last menstrual period Grav: 8 Para: 6 OB History Details: Currently with twins H/o x5, C/S x1. Had steroids / and 5. Current complications: gestational diabetes, di/di twins Abnormal US findings: No Past Medical History: none Current medications: pre-paulino vitamins, other (ASA 81, Procadia XL 30 TID) Previous surgical history: low tranverse CS, other (breast abscess) Allergies/Adverse Reactions: Allergies Allergy/AdvReac Type Severity Reaction Status Date / Time labetalol Allergy Severe Verified 03/04/19 12:15 Hives Social history: tobacco use - Physical Exam Abnormal vital signs: BP= 164/90 - Assessment L&D Assessment: scheduled repeat section (31 weeks, elevated BP in severe range, has had steroids) - Plan Plan: admit to L&D, magnesium for seizure prophylaxis (BP control tonight with C /S in AM, Dr. Xavier notified.)
--- NOTE | 2019-03-23 22:34 | PDOC.EVN ---
Event Note - Event Note Event Note: Unable to monitor. BPP=8/8 both twins, vtx, breech. Bp 150's s/p apresoline x 3 doses. Mg load given, now at 2 gms/hr. Labs WNL. Plan for C/S in AM.
[2019-03-23 23:16] LABS: HBSAg Index 0.48 S/CO (0-0.99); Hep B Surf Ag Non-Reactive S/CO (NonReactive)
[2019-03-24] MEDS: Acetaminophen 500 MG TAB PO PRN (01:21)
[2019-03-24] MEDS: NIFEdipine 10 MG CAP PO SCH ×3 (01:32→16:10)
[2019-03-24] MEDS ORDERED: NIFEdipine 10 MG CAP ONE (02:08)
[2019-03-24] MEDS ORDERED: Lidocaine 2% 10 ML INJ ONE (02:30)
[2019-03-24] MEDS ORDERED: PHENYLEPHRINE-NS 100 MCG/ML 10 ML SYRINGE ONE ×2 (02:31→03:41)
[2019-03-24] MEDS ORDERED: Oxytocin 10 UNITS/ML VIAL ONE (02:31)
[2019-03-24] MEDS ORDERED: ePHEDrine/0.9% NaCl/PF SYRINGE 50 mg/10 ml ONE (02:31)
[2019-03-24] MEDS ORDERED: Lidocaine 2% MPF 10 ML AMP (For Epidural Use) ONE (02:34)
[2019-03-24] MEDS ORDERED: Azithromycin 500 MG VIAL ONE (02:56)
[2019-03-24] MEDS ORDERED: MORPHINE 5 MG/10 ML PF VIAL ONE (02:58)
[2019-03-24] MEDS ORDERED: Ketorolac Tromethamine 30 MG/ML VIAL ONE (02:59)
[2019-03-24] MEDS ORDERED: Ondansetron PF 4 MG/2 ML Vial ONE (02:59)
[2019-03-24] MEDS ORDERED: Azithromycin 500 MG in Sodium Chloride 0.9% 250 ML 250 ML IVPB SCH (03:00)
[2019-03-24] MEDS ORDERED: CEFAZOLIN 1 GM VIAL SLOW IVP SCH (03:00)
[2019-03-24] MEDS ORDERED: CEFAZOLIN 3 GM in Sodium Chloride 0.9% 100 ML IVPB SCH (03:00)
[2019-03-24] MEDS ORDERED: diphenhydrAMINE 50 MG/ML VIAL IVP PRN (03:17)
[2019-03-24] MEDS ORDERED: Promethazine HCl 25 MG/ML VIAL IM PRN (03:17)
[2019-03-24] MEDS ORDERED: Ketorolac Tromethamine 30 MG/ML VIAL IVP PRN (03:17)
[2019-03-24] MEDS ORDERED: Ondansetron PF 4 MG/2 ML Vial IVP PRN ×2 (03:17→04:08)
[2019-03-24] MEDS ORDERED: HYDROmorphone 2 MG/ML VIAL SLOW IVP PRN (03:17)
[2019-03-24] MEDS ORDERED: Naloxone HCl 0.4 mg/ml Vial IV PRN (03:17)
[2019-03-24] MEDS ORDERED: L&D-Morphine 4 MG/ML VIAL SLOW IVP PRN (03:17)
[2019-03-24] MEDS ORDERED: Ondansetron HCl/PF 4 MG/2 ML Vial IVP PRN (03:17)
[2019-03-24] MEDS ORDERED: Naloxone HCl 0.4 mg/ml Vial IVP PRN ×2 (03:17)
[2019-03-24] MEDS ORDERED: Promethazine HCl 25 MG SUPP PR PRN (03:17)
[2019-03-24] MEDS ORDERED: Hydrocerin (Eucerin) Cream 120 gm Jar TOP PRN (03:17)
[2019-03-24] MEDS ORDERED: Ketorolac Tromethamine 30 MG/ML VIAL IVP SCH (03:30)
[2019-03-24] MEDS ORDERED: Communication Order-Pharmacy FS SCH (03:30)
[2019-03-24] MEDS ORDERED: hydrALAZINE 20 MG/ML VIAL SLOW IVP PRN (04:07)
[2019-03-24] MEDS ORDERED: Adacel (T-DAP) 0.5 ML SYRINGE IM ONE (04:08)
[2019-03-24] MEDS ORDERED: HYDROcodone/Acetaminophen 5/325 mg Tablet PO PRN (04:08)
[2019-03-24] MEDS ORDERED: Calcium Gluconate 4.6 MEQ in Sodium Chloride 0.9% 100 ML IVPB PRN (04:08)
[2019-03-24] MEDS ORDERED: NS / Oxytocin 40 units/1000ml 1,000 ML IV SCH (04:15)
[2019-03-24] MEDS ORDERED: Magnesium Sulfate 20 gm/500 ml 20 GM/500 ML BAG IVPB SCH (04:15)
[2019-03-24] MEDS: Meperidine HCl/PF 25 MG/ML VIAL SLOW IVP PRN ×2 (04:27→04:47)
--- NOTE | 2019-03-24 05:50 | OP ---
DATE OF PROCEDURE: 03/24/2019 TIME OF DICTATION: 4:14. PREOPERATIVE DIAGNOSIS: 31 to 32 weeks gestation with dichorionic diamniotic twins, prior classical uterine incision, chronic hypertension with superimposed severe preeclampsia and gestational diabetes with severe morbid obesity. POSTOPERATIVE DIAGNOSIS: 31 to 32 weeks gestation with dichorionic diamniotic twins, prior classical uterine incision, chronic hypertension with superimposed severe preeclampsia and gestational diabetes with severe morbid obesity. PROCEDURE PERFORMED: Repeat section low transverse without extension. MENTAL HEALTH AIDES TEACHER: 1. Domingo Dukes MD. 2. Smiley Dickens MD, PGY-3. ANESTHESIA: Subarachnoid block, Josie Chen MD. MEDICATIONS: 3 g Ancef preincision, Zithromax 500 preincision, DVT prophylaxis, SCDs applied preoperatively with Lovenox initiated 6 hours postoperatively. ESTIMATED BLOOD LOSS: Approximately 1250 mL. COMPLICATIONS: None. DRAINS: Calle to gravity with Prevena wound VAC. OPERATIVE FINDINGS: 1. Vigorous female infant, serge breech presentation. Twin A, Apgars and weight pending. 2. Twin B vigorous male , cephalic presentation, clear fluid, Apgars and weight pending. 3. Normal-appearing uterus post removal of placenta. 4. Good hemostasis, clear urine. COUNTS: Correct at the end of the procedure. DISPOSITION: Recovery and postoperative care on LD unit for severe preeclampsia. DESCRIPTION OF PROCEDURE: After obtaining appropriate operative consent, patient was taken to the operating room, where the subarachnoid block was achieved without difficulty. Patient's large pannus was taped using white tape up over shoulders onto the bed to help elevate and expose the abdominal incision. The previous Pfannenstiel incision was identified. After prepping and draping, incision was carried through this for depth of approximately 5 to 6 inches down the level of fascia, was incised sharply, extended superiorly and laterally with curved Bower scissors and dissected off sharply superiorly and inferiorly. The peritoneum was identified and entered bluntly, and avoid trauma to the underlying viscera. Extra large Ahny O retractor was placed inside. Uterus was noted to be nonrotated and to be thin and fairly well-developed in its lower uterine segment above the level of the vesicouterine peritoneal fold. A low transverse hysterotomy incision was made and clear fluid was noted. First infant encountered was in a serge breech presentation, was elevated to hysterotomy, delivered maintaining flexion. Cord clamped, cut, handed off to the team in attendance. Usual cord blood sample obtained. Second infant was noted to be cephalic presentation and was delivered through the same hysterotomy without incident. Again, cord blood sample was obtained. The placenta was removed manually and sent for pathology. The uterus was curetted out using a dry laparotomy sponge. Hysterotomy was noted to be without extension. It was closed using a running locking #1 Monocryl suture in a single layer. Good hemostasis was noted. Gutters were irrigated out bilaterally and reinspection hysterotomy revealed it to be dry. The Hany O retractor was removed from the abdominal cavity. The rectus was inspected, noted to be dry. The fascia was reapproximated using a running continuous #1 PDS loop x2. Once the fascia was reapproximated, subcutaneous tissues irrigated, rendered hemostatic with Bovie cautery. Deep subcu was reapproximated in a 2 layer manner using a 2-0 plain gut. Skin was reapproximated with sj. A Prevena wound VAC was applied. Patient was taken to recovery room for initiation of LICU care post section with severe preeclampsia. OB hospitalist will be managing the patient while on the Labor and Delivery Unit. We will initiate Lovenox approximately 5 to 6 hours postsurgery completion. Job ID: [id number]
[2019-03-24] MEDS ORDERED: Enoxaparin Sodium 40 MG/0.4 ML SYRINGE SC SCH (09:00)
[2019-03-24 10:30] LABS: Hemoglobin 10.5 g/dL (12.0-16.0)
[2019-03-24 10:37] LABS: Anion Gap 11 mmol/L (10-20); BUN (Urea Nitrogen) 15 mg/dL (7.0-18.7); Calc. Creatinine Clearance 353 mL/min (70-130); Carbon Dioxide 22 mmol/L (22-29); Chloride 105 mmol/L (98-107); Estimated GFR-MDRD Greater than 90; Glucose 107 mg/dL (70-105); Magnesium 3.8 mg/dL (1.6-2.6); Potassium 4.5 mmol/L (3.5-5.1); Sodium 133 mmol/L (136-145)
[2019-03-24 11:46] LABS: Platelet Count 204 thou/uL (130-400)
[2019-03-24] MEDS: Enoxaparin Sodium 40 MG/0.4 ML SYRINGE SC SCH (12:01)
[2019-03-24] MEDS: Magnesium Sulfate 20 gm/500 ml 20 GM/500 ML BAG IVPB SCH ×2 (12:04→16:11)
[2019-03-24] MEDS: hydrALAZINE 20 MG/ML VIAL SLOW IVP PRN (14:14)
[2019-03-24] MEDS: Prenatal Vitamin 1 TAB PO SCH (15:46)
[2019-03-24] MEDS: HYDROcodone/Acetaminophen 5/325 mg Tablet PO PRN ×2 (16:20→23:08)
[2019-03-24] MEDS ORDERED: hydrALAZINE 20 MG/ML VIAL SLOW IVP SCH (16:30)
[2019-03-24] MEDS ORDERED: NIFEdipine XL 60 MG TAB PO SCH (16:30)
[2019-03-24] MEDS ORDERED: NIFEdipine XL 30 MG TAB PO SCH (16:45)
--- NOTE | 2019-03-24 20:11 | PDOC.EVN ---
Event Note - Event Note Event Note: PT with repeated severe range pressures. mag levels sub optimal at 2gm and 2.5 gm/hr. most recent mag level 4.2. will increase to 3gm an hour with mag level in 3hrs. Pt given procardia xl 30mg at 1500. resistant to 10 hydralizine IV. Will given 20mg iv now. Most recent bp 170/101.
[2019-03-24] MEDS: Lactated Ringer's 1,000 ML IV SCH (22:00)
[2019-03-24] MEDS ORDERED: Furosemide 40 MG/4 ML VIAL SLOW IVP SCH (23:00)
[2019-03-25] MEDS: HYDROcodone/Acetaminophen 5/325 mg Tablet PO PRN ×2 (03:06→07:43)
[2019-03-25] MEDS ORDERED: hydrALAZINE 20 MG/ML VIAL SLOW IVP SCH (06:30)
--- NOTE | 2019-03-25 07:50 | PRG ---
DATE OF SERVICE: 03/25/2019 HISTORY OF PRESENT ILLNESS: The patient is a 39-year-old female with chronic hypertension, now postop day 1, status post a for twin gestation and chronic hypertension with superimposed severe preeclampsia and gestational diabetes with severe morbid obesity, remote from delivery. The patient had a primary and has been on magnesium for the last 24 hours for seizure prophylaxis. The patient has required multiple IV medications for blood pressure control including institution of Procardia XL 30 mg p.o. daily, 20 mg of IV hydralazine x2, and 40 mg of Lasix x1. The patient this morning began exhibiting severe range blood pressures again and on evaluation, it was noted that her blood pressure cuff was well below the level of her heart. Once her arm was placed on pillows making her wrist cuff even with the level of her heart, repeat blood pressures demonstrated mild range pressures. With that discovery, I held the 20 mg of IV hydralazine that I initially ordered. I have also increased her Procardia XL to 60 mg daily, which I have continued given the frequent IV medication use that was needed last night. This morning, the patient reports that she is tolerating p.o., having good pain control and decreased lochia. OBJECTIVE: VITAL SIGNS: Most recent blood pressure is 131/69, heart rate of 93, respiratory rate of 18, saturating 99% on room air. GENERAL: She appears to be in no acute distress. She is alert, oriented, cooperative, and pleasant to interact with. HEAD: Normocephalic and atraumatic. LUNGS: Clear to auscultation bilaterally. ABDOMEN: Her incision is intact with a wound vacuum. LABORATORY DATA: A post delivery hemoglobin is pending. ASSESSMENT AND PLAN: The patient is a 39-year-old female, now postop day 1, status post a for twin gestation complicated by chronic hypertension with superimposed preeclampsia with severe features and gestational diabetes with morbid obesity. The patient is off magnesium now for seizure prophylaxis. I have increased her Procardia to 60 mg daily. The patient will remain here in Labor and Delivery for the morning to see how her pressures continue and may transfer to the floor after lunch. Her primary OB, Dr. Xavier will be assuming care this morning. Job ID: [id number]
[2019-03-25 07:53] LABS: Hemoglobin 9.7 g/dL (12.0-16.0); Mean Corpuscular HGB CONC 34.5 g/dL (32.0-36.0); Mean Corpuscular Hemoglobin 28.1 pg (27.0-31.0); Mean Corpuscular Volume 81.5 fL (78.0-98.0); Mean Platelet Volume 7.1 fL (7.4-10.4); Platelet Count 193 thou/uL (130-400); RBC Distribution Width 15.4 % (11.5-14.5); Red Blood Cell (RBC) Count 3.47 mill/uL (4.20-5.40); White Blood Cell (WBC) Count 9.1 thou/uL (4.8-10.8)
[2019-03-25] MEDS ORDERED: NIFEdipine XL 60 MG TAB PO SCH (09:00)
[2019-03-25] MEDS ORDERED: NIFEdipine XL 30 MG TAB PO SCH ×3 (09:00)
[2019-03-25] MEDS: hydrALAZINE 20 MG/ML VIAL SLOW IVP PRN ×3 (11:09→20:27)
[2019-03-25 11:31] LABS: Anion Gap 9 mmol/L (10-20); BUN (Urea Nitrogen) 14 mg/dL (7.0-18.7); Calc. Creatinine Clearance 311 mL/min (70-130); Calcium 7.7 mg/dL (7.8-10.44); Carbon Dioxide 28 mmol/L (22-29); Chloride 100 mmol/L (98-107); Estimated GFR-MDRD Greater than 90; Glucose 107 mg/dL (70-105); Magnesium 2.9 mg/dL (1.6-2.6); Potassium 4.2 mmol/L (3.5-5.1); Sodium 133 mmol/L (136-145)
[2019-03-25] MEDS: Meperidine HCl/PF 25 MG/ML VIAL IM PRN ×3 (12:10→19:44)
[2019-03-25] MEDS: Lactated Ringer's 1,000 ML IV SCH (15:37)
[2019-03-25] MEDS: NIFEdipine XL 60 MG TAB PO SCH ×2 (15:38→21:51)
[2019-03-25] MEDS: Prenatal Vitamin 1 TAB PO SCH (15:39)
[2019-03-25] MEDS ORDERED: Meperidine HCl/PF 25 MG/ML VIAL ONE ×2 (15:52→19:37)
[2019-03-25] MEDS: Acetaminophen 500 MG TAB PO PRN (17:31)
[2019-03-25] MEDS ORDERED: cloNIDine 0.1 MG TAB PO PRN (23:33)
[2019-03-25] MEDS ORDERED: Simethicone Chewable 80 MG TAB PO PRN (23:33)
[2019-03-25] MEDS ORDERED: diphenhydrAMINE 25 MG CAP PO PRN (23:33)
--- NOTE | 2019-03-26 00:01 | PRG ---
DATE OF SERVICE: 03/25/2019 TIME OF SERVICE: 0 hours. The patient continues to rest comfortably. Blood sugars during the day today were 107, she has been high, normokalemic. Hematocrit was stable at 28%. Blood pressures have stabilized below 160s/90s, on Procardia 60 b.i.d. She has not required Apresoline or Lasix since the morning of today. She denies headache. PHYSICAL EXAMINATION: GENERAL: Reveals an obese female, resting comfortably. LUNGS: Clear to auscultation bilaterally. HEART: Regular rate and rhythm. ABDOMEN: Soft, nontender, Prevena in place, dry. EXTREMITIES: No clubbing, cyanosis, or edema. IMPRESSION: Severe preeclampsia, chronic hypertension, morbid obesity, improving pressures. PLAN: Transfer to floor. Continue SCDs and Lovenox. Continue Procardia XL 60 b.i.d., clonidine as needed for elevated systolic blood pressures, and routine post care with Prevena. Job ID: [id number]
[2019-03-26] MEDS: Enoxaparin Sodium 40 MG/0.4 ML SYRINGE SC SCH ×2 (00:47→13:36)
[2019-03-26] MEDS: Acetaminophen 500 MG TAB PO PRN ×2 (02:54→10:13)
[2019-03-26] MEDS: Meperidine HCl/PF 25 MG/ML VIAL IM PRN (02:54)
[2019-03-26 06:49] LABS: #Eosinphils 0.2 thou/uL (0.0-0.7); #Lymphocytes 1.7 thou/uL (1.20-3.40); #Monocytes 0.6 thou/uL (0.11-0.59); #Neutrophils 9.8 thou/uL (1.40-6.50); %Basophils 0.1 % (0.0-1.0); %Eosinophils 1.2 % (0.0-10.0); %Monocytes 4.5 % (0.0-10.0); %Neutrophils 80.1 % (42.0-75.0); Mean Corpuscular HGB CONC 32.7 g/dL (32.0-36.0); Mean Corpuscular Hemoglobin 27.2 pg (27.0-31.0); Mean Platelet Volume 7.1 fL (7.4-10.4); Platelet Count 230 thou/uL (130-400); RBC Distribution Width 15.6 % (11.5-14.5); Red Blood Cell (RBC) Count 3.69 mill/uL (4.20-5.40); White Blood Cell (WBC) Count 12.2 thou/uL (4.8-10.8)
--- NOTE | 2019-03-26 07:56 | PRG ---
DATE OF SERVICE: 03/26/2019 TIME OF SERVICE: 0740 hours. SUBJECTIVE: The patient is resting comfortably in bed on the floor this morning. She denies shortness of breath. She states that her pain is improving and has essentially no headache. OBJECTIVE: VITAL SIGNS: Temperature 98.2, pulse 102, respirations 20, and blood pressure 132/77. LUNGS: Clear to auscultation bilaterally. ABDOMEN: Soft and nontender per venous in situ. Minimal discharge. EXTREMITIES: Without clubbing, cyanosis, or edema. LABORATORY DATA: Hematocrit this morning is 30.6, up from 28.3 yesterday. IMPRESSION: The patient is doing well, postoperative day 2 to 3, status post section for chronic hypertension with superimposed severe preeclampsia with twins at 31 to 32 weeks' gestation, prior classical incision, gestational diabetes, and morbid obesity. PLAN: Continue care. Continue Procardia. Continue Prevena. Anticipate discharge in 1 to 2 days with Prevena upon discharge, the patient to resume home Procardia dose of 30 and 60, and follow up in the office with Prevena care and blood pressure checks. Job ID: [id number]
[2019-03-26] MEDS ORDERED: Adacel (T-DAP) 0.5 ML SYRINGE IM ONE (09:00)
[2019-03-26] MEDS: Prenatal Vitamin 1 TAB PO SCH (10:12)
[2019-03-26] MEDS: NIFEdipine XL 60 MG TAB PO SCH ×2 (10:13→20:55)
[2019-03-26] MEDS: HYDROcodone/Acetaminophen 5/325 mg Tablet PO PRN ×2 (15:41→19:47)
[2019-03-27] MEDS: HYDROcodone/Acetaminophen 5/325 mg Tablet PO PRN ×4 (04:34→19:56)
--- NOTE | 2019-03-27 06:42 | PDOC.PP ---
Post Progress Note Post Day #: POD 3 Subjective: Requests dsch to home tomorrow AM, otherwise no new physical complaints PO intake tolerated: yes Flatus: yes Ambulation: yes Vital Signs (12 hours) Temp Pulse Resp BP BP Pulse Ox 03/27/19 03:37 93 133/79 03/26/19 23:48 92 140/80 03/26/19 20:55 134/74 03/26/19 19:48 183/95 H 03/26/19 19:40 98.7 F 112 H 22 H 183/95 H 93 L Weight Weight 384 lb - Physical Examination General: NAD Cardiovascular: no m/r/g Respiratory: clear to auscultation bilaterally Abdominal: + bowel sounds, no distention, appropriately TTP Extremities: negative homans (B) Skin: CS incision dry & intact (PREVENA IN PLACE) Neurological: no gross focal deficits Psychiatric: A&Ox3, normal affect Result Diagrams: 03/26/19 06:31 03/25/19 10:57 Additional Labs: Post Labs Blood Type O POSITIVE 03/23/19 21:21 Hep Bs Antigen Non-Reactive S/CO (NonReactive) 03/23/19 21:21 (1) Obesity affecting Code(s): O99.210 - OBESITY COMPLICATING , UNSPECIFIED TRIMESTER Status: Acute (2) S/P primary low transverse Code(s): Z98.891 - HISTORY OF UTERINE SCAR FROM PREVIOUS SURGERY Status: Acute (3) Bipolar disorder Code(s): F31.9 - BIPOLAR DISORDER, UNSPECIFIED Status: Chronic (4) HTN (hypertension) Code(s): I10 - ESSENTIAL (PRIMARY) HYPERTENSION Status: Chronic - Assessment/Plan POD 3 with: 1. CS Delivery: prevena in place. Afebrile 2. CHTN: Patient had SBP of 180/90 yesterday but retaken was non-urgent. We will watch today. Procardia 60mg XL po BID in use 3. Obesity: On lovenox 40 QD...will need to go home on 325 ASA Q D x 2 weeks 4. GDM: no meds currently, but will need glycemic eval in 6 weeks Prob home tomorrow...watch BPs today
[2019-03-27] MEDS: Prenatal Vitamin 1 TAB PO SCH (09:11)
[2019-03-27] MEDS: NIFEdipine XL 60 MG TAB PO SCH ×2 (09:11→21:14)
[2019-03-27] MEDS: Enoxaparin Sodium 40 MG/0.4 ML SYRINGE SC SCH (13:27)
[2019-03-28] MEDS: HYDROcodone/Acetaminophen 5/325 mg Tablet PO PRN ×2 (03:33→16:09)
[2019-03-28] MEDS: NIFEdipine XL 60 MG TAB PO SCH (09:20)
[2019-03-28] MEDS: Prenatal Vitamin 1 TAB PO SCH (09:20)
--- NOTE | 2019-03-28 10:17 | DIS ---
DATE OF ADMISSION: 03/23/2019 DATE OF DISCHARGE: 03/28/2019 ADMITTING DIAGNOSES: 1. Di-di twins gestation at 31 weeks. 2. Gestational diabetes. 3. -induced hypertension. 4. Previous . 5. Morbid obesity. 6. Chronic hypertension. DISCHARGE DIAGNOSES: 1. Di-di twins gestation at 31 weeks. 2. Gestational diabetes. 3. -induced hypertension. 4. Chronic hypertension with superimposed severe preeclampsia and prior classical uterine incision. PROCEDURE: Repeat lower transverse section. CONSULTATIONS: None. HOSPITAL COURSE: The patient is a 39-year-old female, who presented with a di-di twins gestation at 31 weeks with chronic hypertension, superimposed preeclampsia with severe features and difficulty to manage resulting in delivery at 31 weeks by . For complete details concerning the operative procedure, please refer to the operative note. The was uncomplicated. Babies were sent to NICU for care and the patient was ultimately sent to for care. Over the course of her stay, the patient has had multiple severe range blood pressures and has required multiple interventions with IV and p.o. medications. The patient, last day and a half or so, has been controlled on Procardia XL 60 mg to be taken twice a day, which has gotten her under control. She has also been on Lovenox 40 mg daily for prophylaxis. For the last 24 hours, her blood pressure has been 148/94, current blood pressure is 144/76, pulse of 104, temperature 98.4. In general, this morning, she appears to be in no acute distress. She is alert and oriented, cooperative, and pleasant to interact with. Head is normocephalic and atraumatic. Incision is clean, dry, and intact with a Prevena. The patient is morbidly obese and otherwise difficult to assess. Extremities are symmetrical and somewhat edematous. The patient will be discharged to home with ibuprofen 800 mg to be taken up to 3 times a day as needed for pain, tramadol 50 mg to be taken every 4 hours as needed for pain #20 and Procardia XL 60 mg to be taken twice a day for at least the next 2 weeks. She has instructions to follow up with Dr. Xavier in 1 week for blood pressure check. She has been given instructions that she can keep the Prevena on until either the battery runs out or it starts to leak. Otherwise, at that time she can remove it at home and discard the equipment. She has instructions not to drive for the next 2 weeks and to minimize her lifting to 15 pounds for the next 4 to 6 weeks. If she experiences bleeding, increasing pain, or drainage from her incision, she is to contact Dr. Xavier. Job ID: [id number]
[2019-03-28] MEDS: Enoxaparin Sodium 40 MG/0.4 ML SYRINGE SC SCH (12:04)
[2019-03-28 16:04] VITALS: BP 128/77; TEMP 98.4
== END 2019-03-28 16:38 | disposition home or self-care (01) | DRG 787 ==
LOC: L&D/OP 19:20 → L&D 23:28 → 3SE 03-26
PROVIDERS: ADMIT Obstetrics & Gynecology; ATTEND Obstetrics & Gynecology
PROC: 10D00Z1 Extraction of Products of Conception, Low, Open Approach (ICD-10-PCS; principal; 2019-03-24)
DX: O34.211 Maternal care for low transverse scar from previous cesarean delivery (principal); O10.92 Unspecified pre-existing hypertension complicating childbirth; O11.4 Pre-existing hypertension with pre-eclampsia, complicating childbirth; O24.429 Gestational diabetes mellitus in childbirth, unspecified control; O30.023 Conjoined twin pregnancy, third trimester; O99.214 Obesity complicating childbirth; E66.01 Morbid (severe) obesity due to excess calories; Z3A.31 31 weeks gestation of pregnancy; Z37.0 Single live birth; O32.1XX1 Maternal care for breech presentation, fetus 1; O99.344 Other mental disorders complicating childbirth; F31.9 Bipolar disorder, unspecified
CPT/HCPCS: 36415; 36416; 51702; 76819; 80048; 80053; 80306; 81003; 81015; 82570; 83735; 84156; 85014; 85018; 85025; 85027; 86780; 86850; 86900; 86901; 87340; 88307; 99285; J0360; J0456; J0690; J1650; J1885; J1940; J2001; J2175; J2270; J2405; J2550; J2590; J3475; J3490

== ENCOUNTER 2021-01-19 07:40 | Emergency (ER) | payer SELFPAY | END 2021-01-19 09:16 | disposition home or self-care (01) | LOC: ERS 07:40 | DX: B37.2 Candidiasis of skin and nail (principal); K08.89 Other specified disorders of teeth and supporting structures; I10 Essential (primary) hypertension; F17.210 Nicotine dependence, cigarettes, uncomplicated | CPT/HCPCS: 36416; 93005 ==

== ENCOUNTER 2021-08-02 08:40 | Outpatient (CLI) | payer MEDICAID | END 2021-08-02 08:41 | disposition home or self-care (01) | LOC: BICMAMMO 08:40 | PROVIDERS: ATTEND Nurse Practitioner Family | DX: N60.02 Solitary cyst of left breast (principal); N61.1 Abscess of the breast and nipple; N64.89 Other specified disorders of breast | CPT/HCPCS: 77066; G0279 ==

== ENCOUNTER 2021-12-16 14:31 | Emergency (ER) | payer MEDICAID ==
[2021-12-16 15:55] LABS: BHCG - Serum Negative (NEGATIVE); Pregs Control Background? CLEAR/WHITE (CLR/WHITE); Pregs Control Bar Appear? YES (CONTROL BAR)
[2021-12-16 15:56] LABS: #Eosinphils 0.1 thou/uL (0.0-0.7); #Lymphocytes 2.1 thou/uL (1.20-3.40); #Monocytes 0.6 thou/uL (0.11-0.59); #Neutrophils 7.5 thou/uL (1.40-6.50); %Eosinophils 1.4 % (0.0-10.0); %Lymphocytes 20.4 % (21.0-51.0); %Monocytes 5.6 % (0.0-10.0); %Neutrophils 72.5 % (42.0-75.0); Hemoglobin 11.8 g/dL (12.0-16.0); Mean Corpuscular HGB CONC 30.3 g/dL (32.0-36.0); Mean Corpuscular Hemoglobin 21.9 pg (27.0-31.0); Mean Corpuscular Volume 72.2 fL (78.0-98.0); Mean Platelet Volume 8.9 fL (7.4-10.4); Platelet Count 267 thou/uL (130-400); RBC Distribution Width 17.6 % (11.5-14.5); Red Blood Cell (RBC) Count 5.38 mill/uL (4.20-5.40); White Blood Cell (WBC) Count 10.3 thou/uL (4.8-10.8)
[2021-12-16 16:07] LABS: ALT (SGPT) 20 U/L (8-55); AST (SGOT) 14 U/L (5-34); Albumin 3.4 g/dL (3.5-5.0); Alkaline Phosphatase 87 U/L (40-110); Anion Gap 9 mmol/L (10-20); BUN (Urea Nitrogen) 8 mg/dL (7.0-18.7); Bilirubin, Total 0.3 mg/dL (0.2-1.2); Calc. Creatinine Clearance 0 mL/min (70-130); Calcium 8.6 mg/dL (7.8-10.44); Carbon Dioxide 27 mmol/L (22-29); Chloride 103 mmol/L (98-107); Globulin 3.7 g/dL (2.4-3.5); Glucose 125 mg/dL (70-105); Potassium 4.1 mmol/L (3.5-5.1); Protein, Total 7.1 g/dL (6.0-8.3); Sodium 135 mmol/L (136-145)
[2021-12-16 16:15] LABS: Anisocytosis SLIGHT = 6-15 cells (100X) (0-5/hpf); Hypochromia SLIGHT = 6-15 cells (100X) (0-5/hpf); MDiff Complete? YES; Macrocytosis SLIGHT = 6-15 cells (100X) (0-5/hpf); Platelet Morphology Comment Appears Adequate; Polychromasia SLIGHT = 2-3 cells (100X) (0-2/hpf); Stomatocytes SLIGHT = 2-5 cells (100X) (0-1/hpf)
[2021-12-16] MEDS ORDERED: Ketorolac Tromethamine 30 MG/ML VIAL ONE (17:49)
[2021-12-16] MEDS ORDERED: Clindamycin 150 MG CAP ONE (17:51)
== END 2021-12-16 18:41 | disposition home or self-care (01) ==
LOC: ERS 14:31
DX: N61.1 Abscess of the breast and nipple (principal); L03.90 Cellulitis, unspecified; I10 Essential (primary) hypertension; F17.210 Nicotine dependence, cigarettes, uncomplicated
CPT/HCPCS: 36415; 80053; 84703; 85025; 96372; J1885

== ENCOUNTER 2021-12-23 06:06 | Emergency (ER) | payer MEDICAID, SELFPAY ==
[2021-12-23 07:02] LABS: #Eosinphils 0.2 thou/uL (0.0-0.7); #Lymphocytes 1.8 thou/uL (1.20-3.40); #Monocytes 0.4 thou/uL (0.11-0.59); #Neutrophils 4.2 thou/uL (1.40-6.50); %Basophils 0.2 % (0.0-1.0); %Eosinophils 3.2 % (0.0-10.0); %Lymphocytes 26.7 % (21.0-51.0); %Monocytes 6.5 % (0.0-10.0); %Neutrophils 63.4 % (42.0-75.0); Hemoglobin 11.3 g/dL (12.0-16.0); Mean Corpuscular HGB CONC 30.9 g/dL (32.0-36.0); Mean Corpuscular Hemoglobin 22.2 pg (27.0-31.0); Mean Corpuscular Volume 71.9 fL (78.0-98.0); Mean Platelet Volume 9.3 fL (7.4-10.4); Platelet Count 254 thou/uL (130-400); RBC Distribution Width 17.8 % (11.5-14.5); Red Blood Cell (RBC) Count 5.08 mill/uL (4.20-5.40); White Blood Cell (WBC) Count 6.6 thou/uL (4.8-10.8)
[2021-12-23 07:27] LABS: ALT (SGPT) 19 U/L (8-55); AST (SGOT) 19 U/L (5-34); Albumin 3.3 g/dL (3.5-5.0); Anion Gap 10 mmol/L (10-20); BUN (Urea Nitrogen) 15 mg/dL (7.0-18.7); Bilirubin, Total 0.3 mg/dL (0.2-1.2); Calc. Creatinine Clearance 0 mL/min (70-130); Calcium 8.3 mg/dL (7.8-10.44); Carbon Dioxide 26 mmol/L (22-29); Chloride 105 mmol/L (98-107); Globulin 3.7 g/dL (2.4-3.5); Glucose 151 mg/dL (70-105); Potassium 3.6 mmol/L (3.5-5.1); Sodium 137 mmol/L (136-145)
[2021-12-23 07:33] LABS: Alkaline Phosphatase 81 U/L (40-110)
[2021-12-23 09:49] LABS: BHCG - Serum Negative (NEGATIVE)
[2021-12-23 09:50] LABS: Pregs Control Background? CLEAR/WHITE (CLR/WHITE); Pregs Control Bar Appear? YES (CONTROL BAR)
[2021-12-23 09:59] LABS: SARS-CoV-2 NAA Rapid Test Not Detected (NotDetected)
== END 2021-12-23 12:40 | disposition home or self-care (01) ==
LOC: ERS 06:06
DX: Z48.817 Encounter for surgical aftercare following surgery on the skin and subcutaneous tissue (principal); Z79.899 Other long term (current) drug therapy; I10 Essential (primary) hypertension; F17.210 Nicotine dependence, cigarettes, uncomplicated; Z20.822 Contact with and (suspected) exposure to COVID-19
CPT/HCPCS: 36415; 80053; 83605; 84703; 85025; U0002

== ENCOUNTER 2022-12-24 07:45 | Emergency (ER) | payer MEDICAID, SELFPAY ==
[2022-12-24 09:02] LABS: #Lymphocytes 0.5 thou/uL (1.20-3.40); #Monocytes 0.4 thou/uL (0.11-0.59); #Neutrophils 6.1 thou/uL (1.40-6.50); %Eosinophils 0.6 % (0.0-10.0); %Lymphocytes 6.9 % (21.0-51.0); %Monocytes 6.2 % (0.0-10.0); %Neutrophils 86.3 % (42.0-75.0); Hemoglobin 10.9 g/dL (12.0-16.0); Mean Corpuscular HGB CONC 30.4 g/dL (32.0-36.0); Mean Corpuscular Volume 69.3 fl (78.0-98.0); Mean Platelet Volume 10.1 fL (7.4-10.4); Platelet Count 204 10x3/uL (130-400); RBC Distribution Width 17.5 % (11.5-14.5); Red Blood Cell (RBC) Count 5.17 mill/uL (4.20-5.40); White Blood Cell (WBC) Count 7.1 10x3/uL (4.8-10.8)
[2022-12-24 09:24] LABS: ALT (SGPT) 20 U/L (8-55); AST (SGOT) 26 U/L (5-34); Albumin 3.4 g/dL (3.5-5.0); Alkaline Phosphatase 78 U/L (40-110); Anion Gap 11 mmol/L (10-20); BUN (Urea Nitrogen) 9 mg/dL (7.0-18.7); Bilirubin, Total 0.4 mg/dL (0.2-1.2); Calc. Creatinine Clearance 0 mL/min (70-130); Calcium 8.2 mg/dL (7.8-10.44); Carbon Dioxide 21 mmol/L (22-29); Chloride 104 mmol/L (98-107); Estimated GFR 113; Glucose 105 mg/dL (70-105); Potassium 4.5 mmol/L (3.5-5.1); Protein, Total 6.4 g/dL (6.0-8.3); Sodium 131 mmol/L (136-145)
[2022-12-24 09:26] LABS: Hypochromia SLIGHT = 6-15 cells (100X) (0-5/hpf); MDiff Complete? YES; Microcytosis MODERATE=15-30 cells (100X) (0-5/hpf); Polychromasia SLIGHT = 2-3 cells (100X) (0-2/hpf)
[2022-12-24] MEDS ORDERED: Iopamidol-370 76% 500 ML 1 ML ONE (11:50)
[2022-12-24 13:07] LABS: SARS-CoV-2 NAA Rapid Test DETECTED (NotDetected)
== END 2022-12-24 15:29 | disposition home or self-care (01) ==
LOC: ERS 07:45
DX: U07.1 COVID-19 (principal); J12.82 Pneumonia due to coronavirus disease 2019; I10 Essential (primary) hypertension; F17.210 Nicotine dependence, cigarettes, uncomplicated
CPT/HCPCS: 36415; 71045; 71275; 80053; 83880; 84484; 85025; 93005; Q9967; U0002

== ENCOUNTER 2023-10-30 04:33 | Emergency (ER) | payer MEDICAID, SELFPAY | END 2023-10-30 05:28 | disposition home or self-care (01) | LOC: ERS 04:33 | DX: I83.891 Varicose veins of right lower extremity with other complications (principal); I10 Essential (primary) hypertension; F17.210 Nicotine dependence, cigarettes, uncomplicated | CPT/HCPCS: 99283 ==

== ENCOUNTER 2025-08-16 19:12 | Emergency (ER) | payer SELFPAY ==
[2025-08-16 21:32] LABS: ALT (SGPT) 26 U/L (Less than 34); AST (SGOT) 25 U/L (11-34); Albumin 3.3 g/dL (3.1-4.5); Anion Gap 11 mmol/L (10-20); BUN (Urea Nitrogen) 13 mg/dL (7.0-18.7); Bilirubin, Total 0.5 mg/dL (0.3-1.2); Calc. Creatinine Clearance 0 mL/min (70-130); Calcium 8.7 mg/dL (7.8-10.44); Carbon Dioxide 27 mmol/L (22-29); Chloride 106 mmol/L (98-107); Globulin 3.5 g/dL (2.4-3.5); Glucose 91 mg/dL (70-105); Potassium 4.0 mmol/L (3.5-5.1); Sodium 140 mmol/L (136-145)
[2025-08-16 21:37] LABS: #Basophils 0.03 10x3/uL (0.0-0.2); #Eosinophils 0.12 10x3/uL (0.0-0.7); #Monocytes 0.54 10x3/uL (0.11-0.59); #Neutrophils 5.69 10x3/uL (1.40-6.50); %Basophils 0.4 % (0.0-1.0); %Eosinophils 1.4 % (0.0-10.0); %Lymphocytes 23.5 % (21.0-51.0); %Monocytes 6.5 % (0.0-10.0); %Neutrophils 68.0 % (42.0-75.0); Hematocrit 36.5 % (36.0-47.0); Hemoglobin 10.6 g/dL (12.0-16.0); Mean Corpuscular Hemoglobin 20.2 pg (27.0-31.0); Mean Corpuscular Volume 69.4 fL (78.0-98.0); Platelet Count 297 10x3/uL (130-400); Red Blood Cell (RBC) Count 5.26 mill/uL (4.20-5.40); White Blood Cell (WBC) Count 8.37 10x3/uL (4.8-10.8)
[2025-08-16 22:12] LABS: Microcytosis SLIGHT = 6-15 cells HPF (0-5); Platelet Adequacy Comment Platelets Normal
[2025-08-16 22:39] LABS: Alkaline Phosphatase 95 U/L (40-110)
[2025-08-16] MEDS ORDERED: Furosemide 40 MG (4 mL) VIAL ONE (23:03)
== END 2025-08-16 23:16 | disposition home or self-care (01) ==
LOC: ERS 19:12
DX: R60.0 Localized edema (principal); M71.20 Synovial cyst of popliteal space [Baker], unspecified knee; L03.119 Cellulitis of unspecified part of limb; I10 Essential (primary) hypertension; F17.210 Nicotine dependence, cigarettes, uncomplicated
CPT/HCPCS: 80053; 83880; 84484; 85025; 93005; 93970; 96374; J1940